=== PATIENT | male | born 1960 | race Caucasian/White ===

== ENCOUNTER 2019-10-17 18:42 | Inpatient (IN) | payer OTHER ==
--- NOTE | 2019-10-17 18:59 | PDOC ---
Rapid Medical Evaluation Time Seen by Provider: 10/17/19 18:58 Medical Evaluation: 10/17/19 18:59 I have performed a brief in-person evaluation of this patient. The patient presents with a chief complaint of: short of breath, ascites Pertinent physical exam findings:stable and in NAD, non-focal I have ordered the following:labs, ekg The patient will proceed to the ED for further evaluation.
[2019-10-17 19:43] LABS: BASO % 1.3 % (0-2.0); EOS % 3.3 % (0-4.5); HEMATOCRIT 34.1 % (35.4-49); HEMOGLOBIN 11.1 GM/dL (11.7-16.9); LYMPH % 19.1 % (8-40); MCH 33.2 pg (25.7-33.7); MCHC 32.7 g/dl (32.0-35.9); MEAN CELL VOLUME 101.7 fl (80-96); MEAN PLT VOLUME 8.9 fl (7.5-11.1); NEUT % 65.3 % (42.8-82.8); PLATELET COUNT 63 K/MM3 (134-434); RBC 3.35 M/mm3 (4.00-5.60); RDW 21.8 % (11.9-15.9); WHITE BLOOD COUNT 4.7 K/mm3 (4.0-10.0)
[2019-10-17 20:00] LABS: INR 1.27 (0.83-1.09)
[2019-10-17 20:03] LABS: ACTIVATED PTT 31.3 SECONDS (25.2-36.5)
[2019-10-17 20:15] LABS: ALBUMIN 2.5 g/dl (3.4-5.0); BLOOD UREA NITROGEN 6.7 mg/dL (7-18); CREATININE 1.1 mg/dL (0.55-1.3); POTASSIUM 3.3 mmol/L (3.5-5.1); TOT PROT 7.4 g/dl (6.4-8.2)
--- NOTE | 2019-10-17 20:20 | PDOC ---
Documentation entered by Lorena Franz SCRIBE, acting as scribe for Elham Lieberman MD. Elham Lieberman MD: This documentation has been prepared by the Osei mcmillan Brenda, SCRIBE, under my direction and personally reviewed by me in its entirety. I confirm that the documentation accurately reflects all work, treatment, procedures, and medical decision making performed by me. Attending Attestation - Resident Resident Name: RasheedMargot - ED Attending Attestation I have performed the following: I have examined & evaluated the patient, The case was reviewed & discussed with the resident, I agree w/resident's findings & plan, Exceptions are as noted - HPI HPI: 10/17/19 20:14 59-year-old male brought in by sister for concern of for his health HPI he is often non-domiciled and has a longstanding history of alcoholism. He shows up at his sister's home periodically and today she was concerned for his health. He had lower extremity edema. Apparently he was admitted at [facility] 3 weeks ago but the sister was not aware of what happened during that admission - Physicial Exam PE: 10/17/19 20: 59-year-old male presents in no acute distress Head no apparent head trauma, no scalp plaques and no hematomas Neck supple Lungs there is some fine bibasilar crackles CVS irregular rhythm Abdomen positive ascites, positive fluid wave, nontender Skin warm and dry Extremities lower extremity pitting edema Neuro alert conversant moving all extremities - Medical Decision Making 10/17/19 20:19 Patient does see the county tax assessor Dr. Monzon PCP is Dr. Dino Benavidez 10/17/19 20:19 Plan review CBC, chemistries, lipase, ammonia, EKG, chest x-ray We will consult Dr. Monzon 10/18/19 01:30 59-year-old male longstanding history of alcoholism and liver cirrhosis with a history of ascites Patient is not febrile, no active nausea or vomiting Review of his labs shows glucose of about 380, hypokalemia and hypomagnesium Plan : we will supplement his magnesium and potassium Patient will be admitted with GI consult with Dr. Monzon
[2019-10-17 20:51] LABS: PH,URINE 7.5 (5.0-8.0); URINE APPEARANCE CLEAR; URINE BILIRUBIN NEGATIVE (NEGATIVE); URINE COLOR YELLOW; URINE GLUCOSE (UA) 3+ (NEGATIVE); URINE KETONE TRACE (NEGATIVE); URINE LEUK ESTERASE NEGATIVE (NEGATIVE); URINE NITRITE NEGATIVE (NEGATIVE); URINE PROTEIN NEGATIVE (NEGATIVE)
--- NOTE | 2019-10-17 20:52 | PDOC ---
History of Present Illness - General Chief Complaint: Edema Stated Complaint: LIVER Time Seen by Provider: 10/17/19 18:58 - History of Present Illness Initial Comments: 10/17/19 20:44 HPI: 59 y/o M non-domiciled non medcompliant poor historian with hx of cirrhosis 2/2 alcohol abuse, HTN, DM, PUD presenting with 3 weeks of abdominal pain, ascites that has been worsening over the past 2 days. The sister at the bedside states he was visiting 3 weeks ago and then left to go to the [facility] and she hasnt been able to find him until 2 days ago. Prior to "the [facility] living" patient was reportedly admitted to [facility] where he had a paracentesis but the family is unclear what else was performed and what diagnoses were made. He denies n/v. He reports pain is usually RUQ and epigastric and nonradiating but he currently does not have pain. He denies hematemesis or BPR. He denies falls, syncope, fevers. He does report pain on urination and a chronic cough. PMHx: as noted above ROS: as noted SHx: last drink reported 3 days ago Allergies: NKDA PCP: Dr Jeff Sun GI: Dr Monzon ROS: GENERAL/CONSTITUTIONAL: No fever or chills. No weakness. HEAD, EYES, EARS, NOSE AND THROAT: No change in vision. No ear pain or discharge. No sore throat. CARDIOVASCULAR: No chest pain or shortness of breath RESPIRATORY: +cough; no wheezing, or hemoptysis. GASTROINTESTINAL: No nausea, vomiting, diarrhea or constipation. GENITOURINARY: +dysuria; no frequency, or change in urination. MUSCULOSKELETAL: No joint or muscle swelling or pain. No neck or back pain. SKIN: No rash NEUROLOGIC: No headache, vertigo, loss of consciousness, or change in strength/ sensation. ENDOCRINE: No increased thirst. No abnormal weight change HEMATOLOGIC/LYMPHATIC: No anemia, easy bleeding, or history of blood clots. ALLERGIC/IMMUNOLOGIC: No hives or skin allergy. PE: GENERAL: Awake, alert, and fully oriented, no acute distress HEAD: No signs of trauma, normocephalic, atraumatic EYES: EOMI, scleral icterus, conjunctiva clear ENT: Auricles normal inspection, hearing grossly normal, nares patent, oropharynx clear without exudates, sublingual jaundice. Moist mucosa NECK: Normal ROM, no lymphadenopathy LUNGS: No increased work of breathing, symmetrical chest rise, BL lower lung base crackles R>L HEART: tachycardic and regular rhythm, normal S1 and S2, no murmurs, peripheral pulses 2+ and equal bilaterally. BL LE edema ABDOMEN: Soft, protuberant abdomen with ascites and +fluid wave, minimal ttp in RUQ, normoactive bowel sounds. No guarding, no rebound. No masses. No CVAT EXTREMITIES: Normal inspection, Normal range of motion, no edema. No clubbing or cyanosis. NEUROLOGICAL: Cranial nerves II through XII grossly intact. negative asterixis, negative pronator drift, normal FTN, normal gait SKIN: Warm, Dry, normal turgor, no rashes or lesions noted Past History - Past Medical History Allergies/Adverse Reactions: Allergies Allergy/AdvReac Type Severity Reaction Status Date / Time aspirin Allergy Verified 10/17/19 19:02 COPD: No Diabetes: Yes GI Disorders: Yes - Psycho Social/Smoking Cessation Hx Smoking History: Never smoked *Physical Exam - Vital Signs Last Vital Signs Temp Pulse Resp BP Pulse Ox 98.5 F 109 H 18 131/75 98 10/17/19 18:56 10/17/19 18:56 10/17/19 18:56 10/17/19 18:56 10/17/19 18:56 ED Treatment Course - LABORATORY CBC & Chemistry Diagram: 10/17/19 19:31 10/17/19 19:31 - ADDITIONAL ORDERS Additional order review: Laboratory Results 10/17/19 10/17/19 10/17/19 19:31 19:31 19:31 WBC 4.7 RBC 3.35 L Hgb 11.1 L Hct 34.1 L MCV 101.7 H MCH 33.2 MCHC 32.7 RDW 21.8 H Plt Count 63 L MPV 8.9 Absolute Neuts (auto) 3.0 Neutrophils % 65.3 Lymphocytes % 19.1 Monocytes % 11.0 H Eosinophils % 3.3 Basophils % 1.3 Nucleated RBC % 0 PT with INR INR PTT (Actin FS) Sodium 132 L Potassium 3.3 L Chloride 95 L Carbon Dioxide 30 Anion Gap 8 BUN 6.7 L Creatinine 1.1 Est GFR (CKD-EPI)AfAm 83.53 Est GFR (CKD-EPI)NonAf 72.07 Random Glucose 382 H Calcium 9.0 Total Bilirubin 3.0 H AST 69 H ALT 35 Alkaline Phosphatase 124 H Creatine Kinase 258 Troponin I 0.09 H Total Protein 7.4 Albumin 2.5 L 10/17/19 19:31 WBC RBC Hgb Hct MCV MCH MCHC RDW Plt Count MPV Absolute Neuts (auto) Neutrophils % Lymphocytes % Monocytes % Eosinophils % Basophils % Nucleated RBC % PT with INR 15.00 H INR 1.27 H PTT (Actin FS) 31.3 Sodium Potassium Chloride Carbon Dioxide Anion Gap BUN Creatinine Est GFR (CKD-EPI)AfAm Est GFR (CKD-EPI)NonAf Random Glucose Calcium Total Bilirubin AST ALT Alkaline Phosphatase Creatine Kinase Troponin I Total Protein Albumin 10/17/19 19:31 RBC 3.35 L MCV 101.7 H MCHC 32.7 RDW 21.8 H MPV 8.9 Neutrophils % 65.3 Lymphocytes % 19.1 Monocytes % 11.0 H Eosinophils % 3.3 Basophils % 1.3 - RADIOLOGY Radiology Studies Ordered: Category Date Time Status CXRPORT [CHEST X-RAY PORTABLE*] [RAD] Stat Radiology 10/17/19 20:10 Ordered Medical Decision Making - Medical Decision Making 10/17/19 21:25 59 y/o M non-domiciled non medcompliant poor historian with hx of cirrhosis 2/2 alcohol abuse, HTN, DM, PUD presenting with 3 weeks of abdominal pain, ascites that has been worsening over the past 2 days. VSS, AF. PE notable for jaundice, ascites, RUQ ttp, BL Le edema, RLL crackles -cbc, cmp, coags, ammonia, ua, ekg, trops, cxr 10/17/19 21:51 Glucose 382 ammonia 49 trop 0.09 ekg with sinus tach and pvcs cxr: no effusion or infiltrates appreciated after review with ED attending Contacted GI, Dr Staley, but he does not know patient or records and was not able to provide additional info Will contact admitting team 10/18/19 00:14 admitted to [facility] will trend trop and decide tele vs med/surg 10/18/19 01:24 trop stable will admit to med surg Discharge - Discharge Information Problems reviewed: Yes Clinical Impression/Diagnosis: Hyperglycemia, Abnormal blood electrolyte level Ascites Qualifiers: Ascites type: due to alcoholic cirrhosis Qualified Code(s): K70.31 - Alcoholic cirrhosis of liver with ascites - Admission Yes - Follow up/Referral Referrals: Jeff Sun [Primary Care Provider] - - Patient Discharge Instructions - Post Discharge Activity
[2019-10-17 21:16] LABS: MAGNESIUM 1.4 mg/dL (1.8-2.4); PHOSPHOROUS 2.1 mg/dL (2.5-4.9)
[2019-10-17 21:43] LABS: ANISOCYTOSIS 2+; MACROCYTOSIS 1+; PLATELET ESTIMATE DECREASED
[2019-10-17] MEDS ORDERED: MAGNESIUM SULF 50% (8.12 MEQ/2 ML-1 GM VIAL) IVPB ONE (23:35)
[2019-10-17] MEDS ORDERED: POTASSIUM CHLORIDE TABS 20 MEQ TABLET.ER (FP) PO ONE ×2 (23:36→23:46)
[2019-10-17] MEDS ORDERED: MAGNESIUM 1GM/D5W - 2 GM/200 ML IVPB IVPB ONE (23:46)
--- NOTE | 2019-10-17 23:47 | HP ---
Admitting History and Physical - Primary Care Physician PCP: Jeff Sun - Admission Chief Complaint: Abdominal Pain, Abdominal Distention, Bilateral Lower Extremity Edema History of Present Illness: This is a 59 y/o man wiith a PMHx of non-domiciled, non-medication compliant, poor historian, Cirrhosis, Alcohol Abuse, HTN, DM, PUD. Who presents to the ED with 3 weeks of abdominal pain, ascites that has been worsening over the past 2 days. Patient is Bengali speaking, and hearing impaired unable to use [employer]. Per ED records: Patient reports pain is usually RUQ and epigastric and nonradiating but he currently does not have pain. Patient also reports pain on urination and a chronic cough. The sister at the bedside states he was visiting 3 weeks ago and then left to go to the streets and she hasn't been able to find him until 2 days ago. Prior to "the street living" patient was reportedly admitted to [facility], where he had a paracentesis but the family is unclear what else was performed and what diagnoses were made. Patient denies n/v. Patient denies hematemesis or BPR. Patient denies fever, falls, syncope. History Source: Patient, Family Member Limitations to Obtaining History: Language Barrier, Physical Impairment ( Hearing Impaired), Poor Historian - Past Medical History Cardiovascular: Yes: HTN Gastrointestinal: Yes: Peptic Ulcer Disease Hepatobiliary: Yes: Cirrhosis Endocrine: Yes: Diabetes Mellitus - Smoking History Smoking history: Never smoked - Alcohol/Substance Use Hx Alcohol Use: Yes (Alcohol Abuse- last drink 3 days ago) - Social History Usual Living Arrangement: Yes: Other (homeless) ADL: Independent History of Recent Travel: No Home Medications - Allergies Allergies/Adverse Reactions: Allergies Allergy/AdvReac Type Severity Reaction Status Date / Time aspirin Allergy Verified 10/17/19 19:02 Family Medical History Family History: Unable to Obtain Review of Systems - Review of Systems Constitutional: reports: No Symptoms Eyes: reports: No Symptoms HENT: reports: No Symptoms Neck: reports: No Symptoms Cardiovascular: reports: No Symptoms Respiratory: reports: Cough Gastrointestinal: reports: Abdominal Pain, Bloating Genitourinary: reports: Burning, Dysuria Breasts: reports: No Symptoms Reported Musculoskeletal: reports: No Symptoms Integumentary: reports: No Symptoms Neurological: reports: No Symptoms Endocrine: reports: No Symptoms Hematology/Lymphatic: reports: No Symptoms Psychiatric: reports: No Symptoms Pain Intensity: 6 Physical Examination Vital Signs: Vital Signs Temperature 98.5 F 10/17/19 18:56 Pulse Rate 109 H 10/17/19 18:56 Respiratory Rate 18 10/17/19 18:56 Blood Pressure 131/75 10/17/19 18:56 O2 Sat by Pulse Oximetry (%) 98 10/17/19 18:56 Constitutional: Yes: No Distress, Calm Eyes: Yes: Sclera Icterus HENT: Yes: WNL, Atraumatic, Normocephalic Neck: Yes: WNL, Supple, Trachea Midline Cardiovascular: Yes: Tachycardia, S1, S2 Respiratory: Yes: Diminished, SOB. No: SOB on Exertion Gastrointestinal: Yes: Ascites, Distention, Hepatomegaly, Hypoactive Bowel Sounds, Splenomegaly. No: Hematemesis, Tenderness, Tenderness, Epigastrium, Vomiting Renal/: Yes: WNL Breast(s): Yes: WNL Musculoskeletal: Yes: WNL Extremities: Yes: WNL Edema: Yes Peripheral Pulses WNL: Yes Neurological: Yes: Alert, Cran Nerves II-XII Intact ...Motor Strength: WNL Psychiatric: Yes: WNL, Alert, Oriented Labs: CBC, BMP 10/17/19 19:31 10/17/19 19:31 Imaging - Results Chest X-ray: Image Reviewed Problem List - Problems (1) Cirrhosis of liver with ascites Assessment/Plan: Chronic Cirrhosis Alcohol Abuse Appreciate GI consult Appreciate IR consult- paracentesis Monitor CBC, BMP Monitor vitals Avoid Hepatotoxic meds Will need to obtain records from [facility] Code(s): K74.60 - UNSPECIFIED CIRRHOSIS OF LIVER; R18.8 - OTHER ASCITES (2) Abnormal blood electrolyte level Assessment/Plan: Likely secondary to chronic Alcohol Abuse, Chronic Cirrhosis Mg and K repleted in ED Monitor BMP Replete lytes as indicated Code(s): E87.8 - OTH DISORDERS OF ELECTROLYTE AND FLUID BALANCE, NEC (3) Serum ammonia increased Assessment/Plan: Likely secondary to Cirrhosis Lactulose ordered Repeat Ammonia level in am Neuro checks Monitor vitals Code(s): E72.20 - DISORDER OF UREA CYCLE METABOLISM, UNSPECIFIED (4) Abdominal pain Assessment/Plan: See above Abdominal US Code(s): R10.9 - UNSPECIFIED ABDOMINAL PAIN (5) Uncontrolled diabetes mellitus Assessment/Plan: Likely due to non-compliance BGMs ISS Monitor BMP Monitor renal function Code(s): E11.65 - TYPE 2 DIABETES MELLITUS WITH HYPERGLYCEMIA (6) Alcohol dependence Assessment/Plan: Alcohol Abstinence Appreciate Detox consult CIWAr 3 Monitor for DTs UDT with ETOH- pending Ativan prn Code(s): F10.20 - ALCOHOL DEPENDENCE, UNCOMPLICATED (7) HTN (hypertension) Assessment/Plan: stable Monitor BP Continue home meds Monitor renal function Code(s): I10 - ESSENTIAL (PRIMARY) HYPERTENSION (8) PUD (peptic ulcer disease) Assessment/Plan: Will continue to monitor and treat with interventions accordingly Pepcid Code(s): K27.9 - PEPTIC ULC, SITE UNSP, UNSP AC OR CHR, W/O HEMOR OR PERF Assessment/Plan This is a 59 y/o man with a PMHx of Alcohol Abuse, HTN, DM, PUD. Admitted for Ascites, Abdominal Pain, Uncontrolled Diabetes Mellitus, Electrolyte Imbalance, Elevated Troponin for further evaluation of their emergent condition. Plan: See Problem List FEN Fluid Restriction Replete lytes prn NPO DVT ppx OOB SCDs Hold AC secondary to Thrombocytopenia Code Status: Full Code Dispo: Requires Inpatient Care Visit type - Emergency Visit Emergency Visit: Yes ED Registration Date: 10/17/19 Care time: The patient presented to the Emergency Department on the above date and was hospitalized for further evaluation of their emergent condition. - New Patient This patient is new to me today: Yes Date on this admission: 10/17/19 - Critical Care Critical Care patient: No
[2019-10-18] MEDS ORDERED: LACTULOSE 20 GM/30 ML UDC (FOR ORAL USE ONLY) PO ONE (00:07)
[2019-10-18] MEDS ORDERED: LACTULOSE 20 GM/30 ML UDC (FOR ORAL USE ONLY) ONE ×2 (00:17→23:44)
[2019-10-18 06:26] LABS: BASO % 0.9 % (0-2.0); EOS % 4.4 % (0-4.5); HEMATOCRIT 29.9 % (35.4-49); HEMOGLOBIN 10.1 GM/dL (11.7-16.9); LYMPH % 24.6 % (8-40); MCH 34.1 pg (25.7-33.7); MCHC 33.8 g/dl (32.0-35.9); MEAN CELL VOLUME 100.9 fl (80-96); MEAN PLT VOLUME 9.2 fl (7.5-11.1); MONO % 10.8 % (3.8-10.2); NEUT % 59.3 % (42.8-82.8); PLATELET COUNT 39 K/MM3 (134-434); RBC 2.96 M/mm3 (4.00-5.60); RDW 21.6 % (11.9-15.9); WHITE BLOOD COUNT 4.2 K/mm3 (4.0-10.0)
[2019-10-18 06:43] LABS: ALBUMIN 2.2 g/dl (3.4-5.0); BILIRUBIN,TOTAL 2.5 mg/dL (0.2-1); BLOOD UREA NITROGEN 5.2 mg/dL (7-18); CALCIUM 8.5 mg/dL (8.5-10.1); CREATININE 0.8 mg/dL (0.55-1.3); MAGNESIUM 1.5 mg/dL (1.8-2.4); PHOSPHOROUS 1.9 mg/dL (2.5-4.9); POTASSIUM 3.7 mmol/L (3.5-5.1); TOT PROT 6.8 g/dl (6.4-8.2)
[2019-10-18] MEDS ORDERED: MORPHINE SULFATE 2 MG/ML VIAL ONE ×2 (07:00→15:59)
[2019-10-18] MEDS: MORPHINE SULFATE 2 MG/ML VIAL IVPUSH ONE ×2 (07:04→07:06)
[2019-10-18 07:09] LABS: COCAINE, UR NEGATIVE ng/ml (CUTOFF=300); METHADONE, UR NEGATIVE ng/ml (CUTOFF=300); OPIATES, URI NEGATIVE ng/ml (CUTOFF=300); PHENCYCLIDINE,URINE NEGATIVE ng/ml (CUTOFF=25); URINE AMPHETAMINES NEGATIVE ng/ml (CUTOFF=500); URINE BARBITURATES NEGATIVE ng/ml (CUTOFF=200); URINE BENZODIAZEPINES NEGATIVE ng/ml (CUTOFF=200)
[2019-10-18] MEDS ORDERED: INSULIN (NOVOLOG) ASPART 100 UNITS/ML 10ML VIAL SQ ONE (07:57)
[2019-10-18] MEDS: FAMOTIDINE 20 MG/50 ML IVPB 20 MG/50 ML MG IVPB SCH ×2 (10:17→23:56)
--- NOTE | 2019-10-18 10:29 | CON.CARD ---
Consult Consult Specialty:: Cardiology Reason for Consultation:: elevated troponin - History of Present Illness Chief Complaint: abd distention History of Present Illness: 59 year old man pmh HTN, DM, etoh abuse cirrhosis, adm with RUQ and epigastric pain, dysuria, chronic cough, ascites. Troponin level was sent and was minimally elevated with normal CK level and not sig trending up on repeat. pt seen and examined in er. pt unable to provide a clear hpi. denies chest pain or sob. states he wants food. - History Source History Provided By: Patient, Medical Record Limitations to Obtaining History: Poor Historian - Past Medical History Cardio/Vascular: Yes: HTN Gastrointestinal: Yes: Peptic Ulcer Disease Hepatobiliary: Yes: Cirrhosis Endocrine: Yes: Diabetes Mellitus - Alcohol/Substance Use Hx Alcohol Use: Yes (Alcohol Abuse- last drink 3 days ago) - Smoking History Smoking history: Never smoked - Social History ADL: Independent History of Recent Travel: No Home Medications - Allergies Allergies/Adverse Reactions: Allergies Allergy/AdvReac Type Severity Reaction Status Date / Time aspirin Allergy Verified 10/17/19 19:02 Family Medical History Family History: Denies Review of Systems - Review of Systems Constitutional: reports: Weakness. denies: No Symptoms, Chills, Diaphoresis, Fever, Lethargy, Loss of Appetite, Malaise, Night Sweats, Unintentional Wgt. Loss, Other Eyes: denies: No Symptoms, Blind Spots, Blurred Vision, Double Vision, Eye Pain , Floaters, Photophobia, Recent Change in Vision, Other HENT: denies: No Symptoms, Difficult Swallowing, Ear Discharge, Ear Pain, Epistaxis, Gingival Bleeding, Hearing Loss, Mouth Swelling, Nasal Congestion, Ocular Prosthesis, Throat Pain, Toothache, Ringing in Ears, Other Neck: denies: No Symptoms, Decreased ROM, Lumps, Pain on Movement, Stiffness, Swollen Glands, Tenderness, Other Cardiovascular: denies: No Symptoms, Chest Pain, Edema, Palpitations, Shortness of Breath, Other Respiratory: reports: Cough. denies: No Symptoms, Exercise Intolerance, Hemoptysis, Orthopnea, PND, Snoring, SOB, SOB on Exertion, Wheezing, Other Gastrointestinal: reports: Abdominal Pain, Bloating. denies: No Symptoms, Constipation, Diarrhea, Dysphagia, Indigestion, Melena, Nausea, Rectal Bleeding , Vomiting, Vomiting Blood, Other Genitourinary: reports: Dysuria. denies: No Symptoms, Burning, Discharge, Flank Pain, Frequency, Hematuria, Incontinence, Lesions, Menses, Pain, Testicular Mass, Testicular Pain, Testicular Swelling, Urgency, Vaginal Bleeding , Other Breasts: denies: No Symptoms Reported, See HPI, Breast Implants, Discharge from Nipple, Lumps, Pain, Skin Changes, Other Musculoskeletal: denies: No Symptoms, Back Pain, Crepitus, Decreased ROM, Extremity Pain, Joint Pain, Joint Swelling, Muscle Pain, Muscle Cramps, Muscle Weakness, Other Integumentary: denies: No Symptoms, Blister, Bruising, Change in Color, Eczema, Erythema, Incision, Lesions, Lump, Pallor, Pruritis, Rash, Wound, Other Neurological: denies: No Symptoms, Change in LOC, Change in Speech, Confusion, Dizziness, Headache, Incoordination, Numbness, Parasthesia, Pre-Existing Deficit , Seizure, Syncope, Tremors, Unsteady Gait, Weakness, Other Endocrine: denies: No Symptoms, Excessive Sweating, Flushing, Increased Hunger, Increased Thirst, Intolerance to Cold, Intolerance to Heat, Unexplained Weight Gain, Unexplained Weight Loss, Other Hematology/Lymphatic: denies: No Symptoms, Easily Bruised, Excessive Bleeding, Swollen Glands, Other Psychiatric: denies: No Symptoms, Altered Sleep Pattern, Anxiety, Depression, Hallucinations, Panic, Paranoia, Suicidal, Other Vital Signs: Vital Signs Temperature 98.2 F 10/18/19 07:40 Pulse Rate 109 H 10/18/19 07:40 Respiratory Rate 20 10/18/19 07:40 Blood Pressure 126/69 10/18/19 07:40 O2 Sat by Pulse Oximetry (%) 98 10/18/19 07:40 Constitutional: Yes: No Distress, Calm Eyes: Yes: Conjunctiva Clear, EOM Intact HENT: Yes: Atraumatic, Normocephalic Neck: Yes: Supple, Trachea Midline Respiratory: Yes: Regular, Diminished. No: Rales, Rhonchi, SOB, Wheezes Gastrointestinal: Yes: Normal Bowel Sounds Cardiovascular: Yes: Regular Rate and Rhythm. No: Bradycardia, Tachycardia, Pulse Irregular, Gallop, Rub, Varicosities JVD: No Carotid Bruit: No PMI: Non-Displaced Heart Sounds: Yes: S1, S2. No: Split S2, S3, S4, Clicks, Gallop, Rub, Bruit Murmur: No: Systolic Murmur, Diastolic Murmur Edema: LLE: Trace, RLE: Trace Peripheral Pulses WNL: Yes Neurological: Yes: Alert Psychiatric: Yes: Alert - Other Data Labs, Other Data: CBC, BMP 10/18/19 05:35 10/18/19 05:35 INR, PTT INR 1.27 (0.83-1.09) H 10/17/19 19:31 Troponin, BNP 10/17/19 10/18/19 19:31 00:28 Troponin I 0.09 H 0.10 H Troponin, BNP 10/17/19 10/18/19 19:31 00:28 Troponin I 0.09 H 0.10 H sinus tach, pvcs, nsst Imaging - Results Chest X-ray: Report Reviewed, Image Reviewed EKG: Report Reviewed, Image Reviewed Other: Report Reviewed, Image Reviewed Assessment/Plan 59 year old man pmh HTN, DM, etoh abuse cirrhosis, adm with RUQ and epigastric pain, dysuria, chronic cough, ascites. Troponin level was sent and was minimally elevated with normal CK level and not sig trending up on repeat. pt unable to provide a clear hpi. denies chest pain or sob. states he wants food. Elevated troponin-incidentally found -minimally elevated with normal CK level and troponin not trending up -not c/w ACS -no symptoms concerning for ACS, no ischemia on ekg -does not require additional inpatient cardiac work up at this time. -does not require telemetry monitoring. Will see as needed.
--- NOTE | 2019-10-18 10:34 | EKG ---
Test Reason : Blood Pressure : / mmHG Vent. Rate : 108 BPM Atrial Rate : 108 BPM P-R Int : 130 ms QRS Dur : 086 ms QT Int : 408 ms P-R-T Axes : 045 005 133 degrees QTc Int : 546 ms SINUS TACHYCARDIA WITH PREMATURE ATRIAL COMPLEXES WITH ABERRANT CONDUCTION NONSPECIFIC T WAVE ABNORMALITY ABNORMAL ECG NO PREVIOUS ECGS AVAILABLE Confirmed by Matty Rivas MD ([id number]) on 10/18/2019 10:34:05 AM Referred By: Confirmed By:Matty Rivas MD
[2019-10-18] MEDS: INSULIN SLIDING SCALE (NOVOLOG) 1 VIAL SQ SCH ×3 (11:04→23:00)
--- NOTE | 2019-10-18 14:16 | PN ---
Progress Note, Physician Chief Complaint: Liver Cirrhosis Ascites Abdominal Pain History of Present Illness: Previous notes and events reviewed awake and alert, confused NAD S/p paracentesis with 5L removed denies complaints of pain - Current Medication List Current Medications: Active Medications Famotidine/Sodium Chloride (Pepcid 20 Mg Premixed Ivpb -) 20 mg in 50 mls @ 100 mls/hr IVPB BID [facility] Last Admin: 10/18/19 10:17 Dose: 100 mls/hr Insulin Aspart (Novolog Vial Sliding Scale -) 1 vial SQ ACHS [facility]; Protocol Last Admin: 10/18/19 11:04 Dose: Not Given - Objective Vital Signs: Vital Signs Temperature 98.2 F 10/18/19 11:49 Pulse Rate 104 H 10/18/19 11:49 Respiratory Rate 20 10/18/19 11:49 Blood Pressure 107/65 10/18/19 11:49 O2 Sat by Pulse Oximetry (%) 100 10/18/19 11:49 Constitutional: Yes: No Distress, Calm, Other (jaundice) Eyes: Yes: EOM Intact HENT: Yes: Atraumatic Cardiovascular: Yes: Regular Rate and Rhythm Respiratory: Yes: Regular, Diminished Gastrointestinal: Yes: Normal Bowel Sounds, Soft Musculoskeletal: Yes: Muscle Weakness Extremities: Yes: WNL Edema: Yes Edema: LLE: 2+ Neurological: Yes: Alert, Confusion Psychiatric: Yes: Alert Labs: CBC, BMP 10/18/19 05:35 10/18/19 05:35 INR, PTT INR 1.27 (0.83-1.09) H 10/17/19 19:31 Problem List - Problems (1) Abdominal pain Assessment/Plan: -2/2 Ascites -Abdominal US shows moderate to marked ascites -pain control Code(s): R10.9 - UNSPECIFIED ABDOMINAL PAIN (2) Cirrhosis of liver with ascites Assessment/Plan: -GI on board -Ammonia 63.70 -Lactulose BID -Abdominal US moderate to marked ascites -s/p paracentesis with 5L removed -daily weights -fluid restrictions Code(s): K74.60 - UNSPECIFIED CIRRHOSIS OF LIVER; R18.8 - OTHER ASCITES (3) Hyperglycemia Assessment/Plan: -ISS -HgA1c -Endocrinology consult Code(s): R73.9 - HYPERGLYCEMIA, UNSPECIFIED (4) Alcohol dependence Assessment/Plan: -Dr Stroe -Ativan BID -MVI, Folic Acid, Thiamine -neuro checks -seizure precaution -fall risk precautions Code(s): F10.20 - ALCOHOL DEPENDENCE, UNCOMPLICATED (5) Elevated troponin Assessment/Plan: -Cardiology consult -troponin 0.09, 0.10 Code(s): R79.89 - OTHER SPECIFIED ABNORMAL FINDINGS OF BLOOD CHEMISTRY (6) Serum ammonia increased Assessment/Plan: -Ammonia 63.70 -Lactulose BID Code(s): E72.20 - DISORDER OF UREA CYCLE METABOLISM, UNSPECIFIED (7) Thrombocytopenia Assessment/Plan: -PLT 39 -Hematology consult Code(s): D69.6 - THROMBOCYTOPENIA, UNSPECIFIED Assessment/Plan see problem list dvt ppx
--- NOTE | 2019-10-18 14:28 | CONSULT ---
Consultation: REQUESTING PROVIDER: HEME/ONC Service CONSULT REQUEST: We have been asked to medically evaluate this patient for thrombocytopenia. HISTORY OF PRESENT ILLNESS: Pt was uncooperative with giving history stating in Vietnamese that he did not want to speak with me. History taken from records. 59 y/o man urbano a PMHx of non-domiciled, non-medication compliant, poor historian, Cirrhosis, Alcohol Abuse, HTN, DM, PUD who presented to ED with complaint of abd pain. Heme/Onc was called to evaluate for thrombocytopenia. REVIEW OF SYSTEMS: unable to assess PHYSICAL EXAMINATION Vital Signs - 24 hr 10/17/19 10/18/19 10/18/19 18:56 06:48 07:40 Temperature 98.5 F 98.2 F Pulse Rate 109 H Pulse Rate [ 96 H 109 H Apical] Respiratory 18 20 20 Rate Blood Pressure 131/75 Blood Pressure 139/76 126/69 [Right Arm] O2 Sat by Pulse 98 96 98 Oximetry (%) 10/18/19 11:49 Temperature 98.2 F Pulse Rate Pulse Rate [ 104 H Apical] Respiratory 20 Rate Blood Pressure Blood Pressure 107/65 [Right Arm] O2 Sat by Pulse 100 Oximetry (%) pt refused exam Laboratory Results - last 24 hr 10/17/19 10/17/19 10/17/19 06:07 19:31 19:31 WBC RBC Hgb Hct MCV MCH MCHC RDW Plt Count MPV Absolute Neuts (auto) Neutrophils % Lymphocytes % Monocytes % Eosinophils % Basophils % Nucleated RBC % Hypochromia Platelet Estimate Platelet Comment Polychromasia Anisocytosis Macrocytosis PT with INR 15.00 H INR 1.27 H PTT (Actin FS) 31.3 Sodium 132 L Potassium 3.3 L Chloride 95 L Carbon Dioxide 30 Anion Gap 8 BUN 6.7 L Creatinine 1.1 Est GFR (CKD-EPI)AfAm 83.53 Est GFR (CKD-EPI)NonAf 72.07 POC Glucometer Random Glucose 382 H Calcium 9.0 Phosphorus Magnesium Total Bilirubin 3.0 H AST 69 H ALT 35 Alkaline Phosphatase 124 H Ammonia Creatine Kinase Creatine Kinase Index CK-MB (CK-2) Troponin I Total Protein 7.4 Albumin 2.5 L Lipase Urine Color Urine Appearance Urine pH Ur Specific [place] Urine Protein Urine Glucose (UA) Urine Ketones Urine Blood Urine Nitrite Urine Bilirubin Urine Urobilinogen Ur Leukocyte Esterase Opiates Screen Negative Methadone Screen Negative Barbiturate Screen Negative Phencyclidine Screen Negative Ur Amphetamines Screen Negative MDMA (Ecstasy) Screen Negative Benzodiazepines Screen Negative Cocaine Screen Negative U Marijuana (THC) Screen Negative Blood Type Antibody Screen 10/17/19 10/17/19 10/17/19 19:31 19:31 20:30 WBC 4.7 RBC 3.35 L Hgb 11.1 L Hct 34.1 L MCV 101.7 H MCH 33.2 MCHC 32.7 RDW 21.8 H Plt Count 63 L MPV 8.9 Absolute Neuts (auto) 3.0 Neutrophils % 65.3 Lymphocytes % 19.1 Monocytes % 11.0 H Eosinophils % 3.3 Basophils % 1.3 Nucleated RBC % 0 Hypochromia 1+ Platelet Estimate Decreased Platelet Comment No clumping noted Polychromasia 2+ Anisocytosis 2+ Macrocytosis 1+ PT with INR INR PTT (Actin FS) Sodium Potassium Chloride Carbon Dioxide Anion Gap BUN Creatinine Est GFR (CKD-EPI)AfAm Est GFR (CKD-EPI)NonAf POC Glucometer Random Glucose Calcium Phosphorus Magnesium Total Bilirubin AST ALT Alkaline Phosphatase Ammonia Creatine Kinase 258 Creatine Kinase Index 0.6 CK-MB (CK-2) 1.7 Troponin I 0.09 H Total Protein Albumin Lipase Urine Color Yellow Urine Appearance Clear Urine pH 7.5 Ur Specific [place] 1.040 H Urine Protein Negative Urine Glucose (UA) 3+ H Urine Ketones Trace H Urine Blood Negative Urine Nitrite Negative Urine Bilirubin Negative Urine Urobilinogen 1.0 Ur Leukocyte Esterase Negative Opiates Screen Methadone Screen Barbiturate Screen Phencyclidine Screen Ur Amphetamines Screen MDMA (Ecstasy) Screen Benzodiazepines Screen Cocaine Screen U Marijuana (THC) Screen Blood Type Antibody Screen 10/17/19 10/17/19 10/18/19 20:30 20:30 00:28 WBC RBC Hgb Hct MCV MCH MCHC RDW Plt Count MPV Absolute Neuts (auto) Neutrophils % Lymphocytes % Monocytes % Eosinophils % Basophils % Nucleated RBC % Hypochromia Platelet Estimate Platelet Comment Polychromasia Anisocytosis Macrocytosis PT with INR INR PTT (Actin FS) Sodium Potassium Chloride Carbon Dioxide Anion Gap BUN Creatinine Est GFR (CKD-EPI)AfAm Est GFR (CKD-EPI)NonAf POC Glucometer Random Glucose Calcium Phosphorus 2.1 L Magnesium 1.4 L Total Bilirubin AST ALT Alkaline Phosphatase Ammonia 49.30 H Creatine Kinase Creatine Kinase Index CK-MB (CK-2) Troponin I 0.10 H Total Protein Albumin Lipase 131 Urine Color Urine Appearance Urine pH Ur Specific [place] Urine Protein Urine Glucose (UA) Urine Ketones Urine Blood Urine Nitrite Urine Bilirubin Urine Urobilinogen Ur Leukocyte Esterase Opiates Screen Methadone Screen Barbiturate Screen Phencyclidine Screen Ur Amphetamines Screen MDMA (Ecstasy) Screen Benzodiazepines Screen Cocaine Screen U Marijuana (THC) Screen Blood Type Antibody Screen 10/18/19 10/18/19 10/18/19 05:35 05:35 05:35 WBC 4.2 RBC 2.96 L Hgb 10.1 L Hct 29.9 L MCV 100.9 H MCH 34.1 H MCHC 33.8 RDW 21.6 H Plt Count 39 L D MPV 9.2 Absolute Neuts (auto) 2.5 Neutrophils % 59.3 Lymphocytes % 24.6 D Monocytes % 10.8 H Eosinophils % 4.4 Basophils % 0.9 Nucleated RBC % 0 Hypochromia Platelet Estimate Platelet Comment Polychromasia Anisocytosis Macrocytosis PT with INR INR PTT (Actin FS) Sodium 135 L Potassium 3.7 Chloride 99 Carbon Dioxide 29 Anion Gap 8 BUN 5.2 L Creatinine 0.8 Est GFR (CKD-EPI)AfAm 111.74 Est GFR (CKD-EPI)NonAf 96.41 POC Glucometer Random Glucose 330 H Calcium 8.5 Phosphorus 1.9 L Magnesium 1.5 L Total Bilirubin 2.5 H AST 66 H ALT 31 Alkaline Phosphatase 115 Ammonia 63.70 H Creatine Kinase Creatine Kinase Index CK-MB (CK-2) Troponin I Total Protein 6.8 Albumin 2.2 L Lipase Urine Color Urine Appearance Urine pH Ur Specific [place] Urine Protein Urine Glucose (UA) Urine Ketones Urine Blood Urine Nitrite Urine Bilirubin Urine Urobilinogen Ur Leukocyte Esterase Opiates Screen Methadone Screen Barbiturate Screen Phencyclidine Screen Ur Amphetamines Screen MDMA (Ecstasy) Screen Benzodiazepines Screen Cocaine Screen U Marijuana (THC) Screen Blood Type Antibody Screen 10/18/19 10/18/19 10/18/19 10:18 11:03 11:50 WBC RBC Hgb Hct MCV MCH MCHC RDW Plt Count MPV Absolute Neuts (auto) Neutrophils % Lymphocytes % Monocytes % Eosinophils % Basophils % Nucleated RBC % Hypochromia Platelet Estimate Platelet Comment Polychromasia Anisocytosis Macrocytosis PT with INR INR PTT (Actin FS) Sodium Potassium Chloride Carbon Dioxide Anion Gap BUN Creatinine Est GFR (CKD-EPI)AfAm Est GFR (CKD-EPI)NonAf POC Glucometer 134 Random Glucose Calcium Phosphorus Magnesium Total Bilirubin AST ALT Alkaline Phosphatase Ammonia Creatine Kinase Creatine Kinase Index CK-MB (CK-2) Troponin I Total Protein Albumin Lipase Urine Color Urine Appearance Urine pH Ur Specific [place] Urine Protein Urine Glucose (UA) Urine Ketones Urine Blood Urine Nitrite Urine Bilirubin Urine Urobilinogen Ur Leukocyte Esterase Opiates Screen Methadone Screen Barbiturate Screen Phencyclidine Screen Ur Amphetamines Screen MDMA (Ecstasy) Screen Benzodiazepines Screen Cocaine Screen U Marijuana (THC) Screen Blood Type O POSITIVE O POSITIVE Antibody Screen Negative Active Medications Generic Name Dose Route Start Last Admin Trade Name Freq PRN Reason Stop Dose Admin Famotidine/Sodium Chloride 20 mg in 50 mls @ 100 mls/hr 10/18/19 10:00 10:17 Pepcid 20 Mg Premixed Ivpb - IVPB 100 mls/hr BID MITESH Administration Insulin Aspart 1 vial 10/18/19 11:00 10/18/19 11:04 Novolog Vial Sliding Scale - SQ Not Given ACHS [facility] Protocol ASSESSMENT/PLAN: 59 y/o man urb[place] alcazar PMHx of non-domiciled, non-medication compliant, poor historian, Cirrhosis, Alcohol Abuse, HTN, DM, PUD who presented to ED with complaint of abd pain. Heme/Onc was called to evaluate for thrombocytopenia. Thrombocytopenia -unable to perform a thorough assessment as pt is uncooperative. -pt is a known EtOH abuser with cirrhosis. This is a likely contributor. -Abd U/S reveal hetergeneous liver, splenomegally, and ascites, which is consistent with pt's presentation -transaminitis, elevated ammonia, bilirubin, INR, decreased albumin all consistent with hepatic dysfunction -no lesions noted on U/S, though could consider AFP and hepititis panel, as well as B12, Folate, TSH and Fe studies Dispo: We will continue to follow the patient. Thank you for this consultative opportunity. Visit type - Emergency Visit Emergency Visit: Yes ED Registration Date: 10/18/19 Care time: The patient presented to the Emergency Department on the above date and was hospitalized for further evaluation of their emergent condition. - New Patient This patient is new to me today: Yes Date on this admission: 10/19/19 - Critical Care Critical Care patient: No ATTENDING PHYSICIAN STATEMENT I saw and evaluated the patient. I reviewed the resident's note and discussed the case with the resident. I agree with the resident's findings and plan as documented. SUBJECTIVE: OBJECTIVE: ASSESSMENT AND PLAN:
[2019-10-18] MEDS ORDERED: morphine CARPU-JECT 2 MG/1 ML DISP.SYRIN IVPUSH ONE (15:53)
[2019-10-18] MEDS ORDERED: MORPHINE SULFATE 2 MG/ML VIAL IVPUSH PRN (16:44)
[2019-10-18 17:22] LABS: PERITONEAL RBC 841 /mm3
--- NOTE | 2019-10-18 17:53 | CON.GI ---
Consult Consult Specialty:: GI - History of Present Illness History of Present Illness: 59 y/o male with PMH of cirrhosis seondary to alcohol abuse was asked to be seen because of worsening ascitis. He started drinking ofr the past few months, He underwent diagnostic and therapeutic paracentesis. - Past Medical History Cardio/Vascular: Yes: HTN Gastrointestinal: Yes: Peptic Ulcer Disease Hepatobiliary: Yes: Cirrhosis Endocrine: Yes: Diabetes Mellitus - Alcohol/Substance Use Hx Alcohol Use: Yes (Alcohol Abuse- last drink 3 days ago) - Smoking History Smoking history: Never smoked - Social History ADL: Independent History of Recent Travel: No Home Medications - Allergies Allergies/Adverse Reactions: Allergies Allergy/AdvReac Type Severity Reaction Status Date / Time aspirin Allergy Verified 10/17/19 19:02 Physical Exam-GI Vital Signs: Vital Signs Temperature 98.2 F 10/18/19 11:49 Pulse Rate 104 H 10/18/19 11:49 Respiratory Rate 20 10/18/19 11:49 Blood Pressure 107/65 10/18/19 11:49 O2 Sat by Pulse Oximetry (%) 100 10/18/19 11:49 Constitutional: Yes: Well Nourished Eyes: Yes: Conjunctiva Clear HENT: Yes: Atraumatic Neck: Yes: Supple Cardiovascular: Yes: Regular Rate and Rhythm Respiratory: Yes: CTA Bilaterally Gastrointestinal Inspection: Yes: Ascites ...Palpate: Yes: Soft. No: Firm/Rigid, Guarding, Hepatomegaly, Mass, Pulsatile Mass, Splenomegaly, Tenderness ...Percussion: Yes: Tympanitic Labs: CBC, BMP 10/18/19 05:35 10/18/19 05:35 INR, PTT INR 1.27 (0.83-1.09) H 10/17/19 19:31 Hepatic Panel Total Bilirubin 2.5 mg/dL (0.2-1) H 10/18/19 05:35 AST 66 U/L (15-37) H 10/18/19 05:35 ALT 31 U/L (13-61) 10/18/19 05:35 Alkaline Phosphatase 115 U/L (45-117) 10/18/19 05:35 Albumin 2.2 g/dl (3.4-5.0) L 10/18/19 05:35 Problem List - Problems (1) Alcoholic cirrhosis of liver with ascites Assessment/Plan: 1) aldactone 50mg daily 2) check vial hepatitis profile 3) daily weights 4) detox protocol 5) thiamine Code(s): K70.31 - ALCOHOLIC CIRRHOSIS OF LIVER WITH ASCITES
[2019-10-18] MEDS: THIAMINE HCL 100 MG TABLET (FP) PO SCH (18:10)
[2019-10-18] MEDS ORDERED: THIAMINE HCL 100 MG TABLET (FP) ONE (18:10)
[2019-10-18 20:26] LABS: PERITONEAL FLUID LYMPHOCYTE 17 %; PERITONEAL FLUID MESOTHELIAL 14 %; PERITONEAL FLUID MONOCYTE 3 %; PERITONEAL FLUID NEUTROPHIL 5 %
[2019-10-18 20:27] LABS: PERITONEAL FLUID MACROPHAGE 61 %
[2019-10-18] MEDS ORDERED: LORazepam 0.5 MG TABLET ONE (23:44)
[2019-10-18] MEDS ORDERED: FAMOTIDINE 20 MG/50 ML IVPB 20 MG/50 ML MG IVPB ONE (23:45)
[2019-10-18] MEDS: LORazepam 1 MG TABLET PO SCH (23:55)
[2019-10-18] MEDS: LACTULOSE 20 GM/30 ML UDC (FOR ORAL USE ONLY) PO SCH (23:56)
[2019-10-18] MEDS: RIFAXIMIN 550 MG TABLET (UD) PO SCH (23:56)
[2019-10-19] MEDS: INSULIN SLIDING SCALE (NOVOLOG) 1 VIAL SQ SCH ×4 (09:18→22:38)
[2019-10-19] MEDS ORDERED: LORazepam 0.5 MG TABLET ONE (10:15)
[2019-10-19] MEDS: LORazepam 1 MG TABLET PO SCH ×2 (10:40→22:31)
[2019-10-19] MEDS: SPIRONOLACTONE 25 MG TABLET (FP) PO SCH (10:40)
[2019-10-19] MEDS: LACTULOSE 20 GM/30 ML UDC (FOR ORAL USE ONLY) PO SCH ×2 (10:40→22:31)
[2019-10-19] MEDS: FAMOTIDINE 20 MG/50 ML IVPB 20 MG/50 ML MG IVPB SCH ×2 (10:41→22:31)
[2019-10-19] MEDS: FOLIC ACID 1 MG TABLET (FP) PO SCH (10:41)
[2019-10-19] MEDS: RIFAXIMIN 550 MG TABLET (UD) PO SCH ×2 (10:41→22:31)
[2019-10-19] MEDS: MULTIVITAMINS (DAILY MVI) TABLET (FP) PO SCH (10:41)
[2019-10-19] MEDS: THIAMINE HCL 100 MG TABLET (FP) PO SCH (10:41)
--- NOTE | 2019-10-19 10:48 | PN ---
Progress Note, Physician Chief Complaint: Liver Cirrhosis Ascites Abdominal Pain History of Present Illness: Previous notes and events reviewed awake and alert NAD denies complaints of pain continues to be confused - Current Medication List Current Medications: Active Medications Folic Acid (Folic Acid -) 1 mg PO DAILY [facility] Last Admin: 10/19/19 10:41 Dose: 1 mg Famotidine/Sodium Chloride (Pepcid 20 Mg Premixed Ivpb -) 20 mg in 50 mls @ 100 mls/hr IVPB BID [facility] Last Admin: 10/19/19 10:41 Dose: 100 mls/hr Insulin Aspart (Novolog Vial Sliding Scale -) 1 vial SQ ACHS [facility]; Protocol Last Admin: 10/19/19 09:18 Dose: 6 units Lactulose (Cephulac (Oral Use)) 20 gm PO BID [facility] Last Admin: 10/19/19 10:40 Dose: 20 gm Lorazepam (Ativan -) 1 mg PO BID [facility] Last Admin: 10/19/19 10:40 Dose: 1 mg Morphine Sulfate (Morphine Sulfate) 1 mg IVPUSH Q6H PRN PRN Reason: PAIN LEVEL 6-10 Multivitamins/Minerals/Vitamin C (Tab-A-Vit -) 1 tab PO DAILY [facility] Last Admin: 10/19/19 10:41 Dose: 1 tab Rifaximin (Xifaxan -) 550 mg PO BID [facility] Last Admin: 10/19/19 10:41 Dose: 550 mg Spironolactone (Aldactone -) 50 mg PO DAILY [facility] Last Admin: 10/19/19 10:40 Dose: 50 mg Thiamine HCl (Vitamin B1 -) 100 mg PO DAILY [facility] Last Admin: 10/19/19 10:41 Dose: 100 mg - Objective Vital Signs: Vital Signs Temperature 98.1 F 10/19/19 04:53 Pulse Rate 99 H 10/19/19 04:53 Respiratory Rate 15 10/19/19 05:45 Blood Pressure 139/73 10/19/19 04:53 O2 Sat by Pulse Oximetry (%) 96 10/19/19 05:45 Constitutional: Yes: No Distress, Calm, Other (jaundice) Eyes: Yes: Conjunctiva Clear HENT: Yes: Atraumatic Cardiovascular: Yes: Regular Rate and Rhythm Respiratory: Yes: Regular, CTA Bilaterally Gastrointestinal: Yes: Normal Bowel Sounds, Soft Musculoskeletal: Yes: Muscle Weakness Extremities: Yes: WNL Edema: No Neurological: Yes: Alert, Confusion Psychiatric: Yes: Alert Labs: CBC, BMP 10/18/19 05:35 10/18/19 05:35 INR, PTT INR 1.27 (0.83-1.09) H 10/17/19 19:31 Microbiology 10/18/19 15:00 Ascites Gram Stain - Final 10/17/19 20:30 Urine - Urine Clean Catch Urine Culture - Final NO GROWTH OBTAINED 10/18/19 15:00 Ascites PAMELLA Preparation - Preliminary 10/18/19 15:00 Ascites Fungal Culture - Preliminary 10/18/19 15:00 Ascites AFB Smear Concentration - Preliminary 10/18/19 15:00 Ascites Mycobacterial Culture - Preliminary Problem List - Problems (1) Abdominal pain Assessment/Plan: -2/2 Ascites -Abdominal US shows moderate to marked ascites -pain control Code(s): R10.9 - UNSPECIFIED ABDOMINAL PAIN (2) Cirrhosis of liver with ascites Assessment/Plan: -GI on board -Ammonia 63.70 -Lactulose BID -Abdominal US moderate to marked ascites -s/p paracentesis with 5L removed -daily weights -fluid restrictions -pending result cytology of ascites fluid Code(s): K74.60 - UNSPECIFIED CIRRHOSIS OF LIVER; R18.8 - OTHER ASCITES (3) Hyperglycemia Assessment/Plan: -ISS -HgA1c -Endocrinology consult Code(s): R73.9 - HYPERGLYCEMIA, UNSPECIFIED (4) Alcohol dependence Assessment/Plan: -Dr Espinoza -Ativan BID -MVI, Folic Acid, Thiamine -neuro checks -seizure precaution -fall risk precautions -Psych consult Code(s): F10.20 - ALCOHOL DEPENDENCE, UNCOMPLICATED (5) Elevated troponin Assessment/Plan: -Cardiology consult -troponin 0.09, 0.10 Code(s): R79.89 - OTHER SPECIFIED ABNORMAL FINDINGS OF BLOOD CHEMISTRY (6) Serum ammonia increased Assessment/Plan: -Ammonia 63.70 -Lactulose BID Code(s): E72.20 - DISORDER OF UREA CYCLE METABOLISM, UNSPECIFIED (7) Thrombocytopenia Assessment/Plan: -PLT 39 -Hematology consult Code(s): D69.6 - THROMBOCYTOPENIA, UNSPECIFIED Assessment/Plan see problem list dvt ppx
--- NOTE | 2019-10-19 17:24 | PN ---
Teaching Attending Note Name of Resident: Chris Wilson ATTENDING PHYSICIAN STATEMENT I saw and evaluated the patient. I reviewed the resident's note and discussed the case with the resident. I agree with the resident's findings and plan as documented. SUBJECTIVE: Patient seen and examined Chart reviewed Hard of hearing and history is unobtainable from patient History of alcoholic cirrhosis. Presents with anemia , thrombocytopenia , abnormal LFT's, elevated NH3 level Last Vital Signs Temp Pulse Resp BP Pulse Ox 98.7 F 120 H 20 111/67 96 10/19/19 14:56 10/19/19 14:56 10/19/19 14:56 10/19/19 14:56 10/19/19 12:13 HEENT: [place], EOM Intact Oropharynx: No thrush, No mucositis Neck: Supple Nodes: Without adenopathy Cor: RSR, No murmurs, No gallops Lungs: Clear to P&A Abd: fluid wave , RUQ fullness Ext:No significant edema Skin: No rashes, Integument intact CBC, BMP 10/18/19 05:35 10/18/19 05:35 Current Medications Generic Name Dose Route Start Last Admin Trade Name Freq PRN Reason Stop Dose Admin Folic Acid 1 mg 10/19/19 10:00 10/19/19 10:41 Folic Acid - PO 1 mg DAILY MITESH Administration Famotidine/Sodium Chloride 20 mg in 50 mls @ 100 mls/hr 10/18/19 10:00 10:41 Pepcid 20 Mg Premixed Ivpb - IVPB 100 mls/hr BID MITESH Administration Insulin Aspart 1 vial 10/18/19 11:00 10/19/19 13:01 Novolog Vial Sliding Scale - SQ Not Given ACHS MITESH Protocol Lactulose 20 gm 10/18/19 22:00 10/19/19 10:40 Cephulac (Oral Use) PO 20 gm BID MITESH Administration Lorazepam 1 mg 10/18/19 22:00 10/19/19 10:40 Ativan - PO 1 mg BID MITESH Administration Morphine Sulfate 1 mg 10/18/19 16:44 Morphine Sulfate IVPUSH Q6H PRN PAIN LEVEL 6-10 Multivitamins/Minerals/Vitamin C 1 tab 10/19/19 10:00 10/19/19 10:41 Tab-A-Vit - PO 1 tab DAILY MITESH Administration Rifaximin 550 mg 10/18/19 22:00 10/19/19 10:41 Xifaxan - PO 550 mg BID MITESH Administration Spironolactone 50 mg 10/19/19 10:00 10/19/19 10:40 Aldactone - PO 50 mg DAILY MITESH Administration Thiamine HCl 100 mg 10/18/19 17:45 10/19/19 10:41 Vitamin B1 - PO 100 mg DAILY MITESH Administration Ultrasound of liver- splenic enlargement ;hterogeneous appearance to liver S/P paracentesis Impression: Advanced hepatocellular disease secondary to alcoholic liver disease. Pancytopenia secondary to liver disease, hypersplenism Plan : currrent regimen Detox. OBJECTIVE: ASSESSMENT AND PLAN:
--- NOTE | 2019-10-19 17:24 | CON.PSY ---
Psychiatry Consult Chief Complaint: 59 [place] old Male with Chronic Alcoholism, ASCitis , non compliant with treatment. Seen for Psych eval for Depression. Symptoms: reports: Irritability - Previous Psychiatric Treatment Outpatient: None Inpatient: None - Previous Substance Abuse Treatment Outpatient: More than 6 mos ago - Reason for Previous Treatment Reason for Previous Treatment: Alcohol Abuse - Current Medications Current Medications: Active Medications Folic Acid (Folic Acid -) 1 mg PO DAILY [facility] Last Admin: 10/19/19 10:41 Dose: 1 mg Famotidine/Sodium Chloride (Pepcid 20 Mg Premixed Ivpb -) 20 mg in 50 mls @ 100 mls/hr IVPB BID [facility] Last Admin: 10/19/19 10:41 Dose: 100 mls/hr Insulin Aspart (Novolog Vial Sliding Scale -) 1 vial SQ ACHS [facility]; Protocol Last Admin: 10/19/19 13:01 Dose: Not Given Lactulose (Cephulac (Oral Use)) 20 gm PO BID [facility] Last Admin: 10/19/19 10:40 Dose: 20 gm Lorazepam (Ativan -) 1 mg PO BID [facility] Last Admin: 10/19/19 10:40 Dose: 1 mg Morphine Sulfate (Morphine Sulfate) 1 mg IVPUSH Q6H PRN PRN Reason: PAIN LEVEL 6-10 Multivitamins/Minerals/Vitamin C (Tab-A-Vit -) 1 tab PO DAILY [facility] Last Admin: 10/19/19 10:41 Dose: 1 tab Rifaximin (Xifaxan -) 550 mg PO BID [facility] Last Admin: 10/19/19 10:41 Dose: 550 mg Spironolactone (Aldactone -) 50 mg PO DAILY [facility] Last Admin: 10/19/19 10:40 Dose: 50 mg Thiamine HCl (Vitamin B1 -) 100 mg PO DAILY [facility] Last Admin: 10/19/19 10:41 Dose: 100 mg - Allergies Allergies: Allergies Allergy/AdvReac Type Severity Reaction Status Date / Time aspirin Allergy Verified 10/17/19 19:02 - Current Living Status Usual Living Arrangement: Alone - Current Mental Status Evaluation Appearance: Disheveled Attitude: Guarded - Affect Affect: Constrictive Appropriateness: Appropriate to Content - Mood Mood: Euthymic - Speech/Language Expressive: Coherent - Psychomotor Activity Psychomotor Activity: Normal - Thought Process Thought Process: Intact - Thought Content Hallucinations: Absent Delusions: Absent - Self Perception Self Perception: No Impairment - Cognition Attention: Alert Orientation: Time Memory, Short Term: 2/3 Memory, Remote with Promptin/3 - Concentration Serial Sevens Intact: No Simple Calculations Intact: No - Abstraction Proverb Interpretation: Impaired Judgement: Moderately Impaired - Insight Insight: Impaired - Impulse Control Impulse Control: Good Control - Suicidal Ideation Suicidal Ideation: No - Homicidal Ideation Homicidal Ideation: No Assessment/Plan 1) Patient is not Clinically DEpressed at this time. 2) Discharge when Medically stable, no Psych follow up needed.
--- NOTE | 2019-10-19 23:02 | CONSULT ---
Consult Consult Specialty:: endocrine Referred by:: jacinta jacobson Reason for Consultation:: dm t 2 - History of Present Illness Chief Complaint: abdominal pain History of Present Illness: 59 y male speaking,pmh liver cirhosis,alchol abuse,ascites, encephalopathy,has elevated blood sugars and electrolyte imbalance.poorly compliant with medication and medical care.family unable to provide information for lack of contact with patient. - Past Medical History Cardio/Vascular: Yes: HTN Gastrointestinal: Yes: Peptic Ulcer Disease Hepatobiliary: Yes: Cirrhosis Endocrine: Yes: Diabetes Mellitus - Alcohol/Substance Use Hx Alcohol Use: Yes (Alcohol Abuse- last drink 3 days ago) - Smoking History Smoking history: Never smoked - Social History Usual Living Arrangement: Alone ADL: Independent History of Recent Travel: No Home Medications - Allergies Allergies/Adverse Reactions: Allergies Allergy/AdvReac Type Severity Reaction Status Date / Time aspirin Allergy Verified 10/17/19 19:02 Review of Systems - Review of Systems Constitutional: reports: Lethargy, Weakness Eyes: reports: No Symptoms HENT: reports: No Symptoms Neck: reports: No Symptoms Cardiovascular: reports: Shortness of Breath Respiratory: reports: Exercise Intolerance, SOB on Exertion Gastrointestinal: reports: Abdominal Pain, Bloating Genitourinary: reports: No Symptoms Musculoskeletal: reports: Joint Pain, Muscle Weakness Physical Exam Vital Signs: Vital Signs Temperature 99.1 F 10/19/19 18:53 Pulse Rate 99 H 10/19/19 18:53 Respiratory Rate 18 10/19/19 18:53 Blood Pressure 132/83 10/19/19 18:53 O2 Sat by Pulse Oximetry (%) 96 10/19/19 12:13 Constitutional: Yes: Anxious Eyes: Yes: EOM Intact HENT: Yes: Normocephalic Neck: Yes: Trachea Midline Cardiovascular: Yes: Regular Rate and Rhythm Respiratory: Yes: CTA Bilaterally Gastrointestinal: Yes: Abdomen, Obese, Ascites ...Rectal Exam: Yes: Deferred Renal/: Yes: WNL Musculoskeletal: Yes: Back Pain, Muscle Pain, Muscle Weakness Extremities: Yes: WNL Edema: No Edema: LLE: 1+, RLE: 1+ Neurological: Yes: Lethargy Labs: CBC, BMP 10/18/19 05:35 10/18/19 05:35 Problem List - Problems (1) Abdominal pain Problems reviewed: Yes Code(s): R10.9 - UNSPECIFIED ABDOMINAL PAIN (2) Abnormal blood electrolyte level Problems reviewed: Yes Code(s): E87.8 - OTH DISORDERS OF ELECTROLYTE AND FLUID BALANCE, NEC (3) Alcohol dependence Problems reviewed: Yes Code(s): F10.20 - ALCOHOL DEPENDENCE, UNCOMPLICATED (4) Alcoholic cirrhosis of liver with ascites Problems reviewed: Yes Code(s): K70.31 - ALCOHOLIC CIRRHOSIS OF LIVER WITH ASCITES (5) Ascites Problems reviewed: Yes Code(s): R18.8 - OTHER ASCITES Qualifiers: Ascites type: due to alcoholic cirrhosis Qualified Code(s): K70.31 - Alcoholic cirrhosis of liver with ascites (6) Cirrhosis of liver with ascites Problems reviewed: Yes Code(s): K74.60 - UNSPECIFIED CIRRHOSIS OF LIVER; R18.8 - OTHER ASCITES (7) Elevated troponin Code(s): R79.89 - OTHER SPECIFIED ABNORMAL FINDINGS OF BLOOD CHEMISTRY (8) HTN (hypertension) Code(s): I10 - ESSENTIAL (PRIMARY) HYPERTENSION (9) Hyperglycemia, unspecified Problems reviewed: Yes Code(s): R73.9 - HYPERGLYCEMIA, UNSPECIFIED Assessment/Plan Current Active Problems Abdominal pain (Acute) Abnormal blood electrolyte level (Acute) Alcohol dependence (Acute) Alcoholic cirrhosis of liver with ascites (Acute) Ascites (Acute) Cirrhosis of liver with ascites (Acute) Elevated troponin (Acute) HTN (hypertension) (Acute) Hyperglycemia (Acute) PUD (peptic ulcer disease) (Acute) Serum ammonia increased (Acute) Thrombocytopenia (Acute) Uncontrolled diabetes mellitus (Acute) Laboratory Results - last 24 hr 10/18/19 10/18/19 10/18/19 15:00 15:00 15:00 POC Glucometer POC Fluid pH Fluid Glucose Fluid Total Protein Fluid Albumin Cancelled Fluid Amylase Cancelled Fluid Cholesterol Cancelled 10/18/19 10/18/19 10/18/19 15:00 15:00 15:00 POC Glucometer POC Fluid pH Cancelled Fluid Glucose Cancelled Fluid Total Protein Cancelled Fluid Albumin Fluid Amylase Fluid Cholesterol 10/19/19 10/19/19 10/19/19 09:12 11:11 16:45 POC Glucometer 303 183 305 POC Fluid pH Fluid Glucose Fluid Total Protein Fluid Albumin Fluid Amylase Fluid Cholesterol 10/19/19 22:35 POC Glucometer 225 POC Fluid pH Fluid Glucose Fluid Total Protein Fluid Albumin Fluid Amylase Fluid Cholesterol Laboratory Tests 10/19/19 10/19/19 10/19/19 09:12 11:11 16:45 POC Glucometer 303 183 305 10/19/19 22:35 POC Glucometer 225 plan: bgm achs glimiperide 1mg daily dose titrate diabetic teaching vns
[2019-10-20] MEDS: GLIMEPIRIDE 1 MG TABLET (FP) PO SCH (06:55)
[2019-10-20] MEDS: INSULIN SLIDING SCALE (NOVOLOG) 1 VIAL SQ SCH ×4 (06:55→21:23)
[2019-10-20] MEDS ORDERED: PT OWN MED DRAWER 7, Y5N ONE ×2 (07:08→15:41)
[2019-10-20] MEDS ORDERED: INSULIN (NOVOLOG) ASPART 100 UNITS/ML 10ML VIAL ONE (07:09)
[2019-10-20 08:08] LABS: HEMATOCRIT 32.8 % (35.4-49); HEMOGLOBIN 10.9 GM/dL (11.7-16.9); MCHC 33.2 g/dl (32.0-35.9); MEAN CELL VOLUME 102.4 fl (80-96); MEAN PLT VOLUME 8.8 fl (7.5-11.1); PLATELET COUNT 96 K/MM3 (134-434); RBC 3.21 M/mm3 (4.00-5.60); RDW 21.9 % (11.9-15.9); WHITE BLOOD COUNT 3.8 K/mm3 (4.0-10.0)
--- NOTE | 2019-10-20 08:09 | PN ---
Progress Note (short form) - Note Progress Note: Patient seen and examined LABS PENDING Complains of cough Last Vital Signs Temp Pulse Resp BP Pulse Ox 98.4 F 89 16 117/69 100 10/19/19 22:00 10/19/19 22:00 10/19/19 22:00 10/19/19 22:00 10/19/19 21:00 HEENT: DAYANNA, EOM Intact Oropharynx: No thrush, No mucositis Cor: RSR, systolic murmur Lungs: scattered rhonchi Abd: fluid wave Ext:No significant edema Skin: No rashes, Integument intact Current Medications Generic Name Dose Route Start Last Admin Trade Name Freq PRN Reason Stop Dose Admin Folic Acid 1 mg 10/19/19 10:00 10/19/19 10:41 Folic Acid - PO 1 mg DAILY MITESH Administration Glimepiride 1 mg 10/20/19 07:00 10/20/19 06:55 Amaryl - PO 1 mg DAILY@0700 MITESH Administration Famotidine/Sodium Chloride 20 mg in 50 mls @ 100 mls/hr 10/18/19 10:00 22:31 Pepcid 20 Mg Premixed Ivpb - IVPB 100 mls/hr BID MITESH Administration Insulin Aspart 1 vial 10/20/19 07:00 10/20/19 06:55 Novolog Vial Sliding Scale - SQ 8 units ACHS MITESH Administration Protocol Lactulose 20 gm 10/18/19 22:00 10/19/19 22:31 Cephulac (Oral Use) PO 20 gm BID MITESH Administration Lorazepam 1 mg 10/18/19 22:00 10/19/19 22:31 Ativan - PO 1 mg BID MITESH Administration Morphine Sulfate 1 mg 10/18/19 16:44 Morphine Sulfate IVPUSH Q6H PRN PAIN LEVEL 6-10 Multivitamins/Minerals/Vitamin C 1 tab 10/19/19 10:00 10/19/19 10:41 Tab-A-Vit - PO 1 tab DAILY MITESH Administration Rifaximin 550 mg 10/18/19 22:00 10/19/19 22:31 Xifaxan - PO 550 mg BID MITESH Administration Spironolactone 50 mg 10/19/19 10:00 10/19/19 10:40 Aldactone - PO 50 mg DAILY MITESH Administration Thiamine HCl 100 mg 10/18/19 17:45 10/19/19 10:41 Vitamin B1 - PO 100 mg DAILY MITESH Administration Impression: Alcoholic liver disease Cirrhosis Pancytopenia secondary to liver disease , hypersplenism and portal hypertension Await labs s/p paracentesis Plan: Follow up GI Detox Social service ENT for hearing deficit
[2019-10-20 08:41] LABS: ALBUMIN 2.1 g/dl (3.4-5.0); BILIRUBIN,TOTAL 2.2 mg/dL (0.2-1); BLOOD UREA NITROGEN 5.2 mg/dL (7-18); CALCIUM 8.7 mg/dL (8.5-10.1); CREATININE 0.8 mg/dL (0.55-1.3); POTASSIUM 3.3 mmol/L (3.5-5.1); TOT PROT 6.6 g/dl (6.4-8.2)
[2019-10-20] MEDS ORDERED: POTASSIUM CHLORIDE TABS 20 MEQ TABLET.ER (FP) PO ONE (08:43)
--- NOTE | 2019-10-20 09:27 | PN ---
Progress Note, Physician - Current Medication List Current Medications: Active Medications Folic Acid (Folic Acid -) 1 mg PO DAILY [facility] Last Admin: 10/19/19 10:41 Dose: 1 mg Glimepiride (Amaryl -) 1 mg PO DAILY@0700 [facility] Last Admin: 10/20/19 06:55 Dose: 1 mg Famotidine/Sodium Chloride (Pepcid 20 Mg Premixed Ivpb -) 20 mg in 50 mls @ 100 mls/hr IVPB BID [facility] Last Admin: 10/19/19 22:31 Dose: 100 mls/hr Insulin Aspart (Novolog Vial Sliding Scale -) 1 vial SQ ACHS [facility]; Protocol Last Admin: 10/20/19 06:55 Dose: 8 units Lactulose (Cephulac (Oral Use)) 20 gm PO BID [facility] Last Admin: 10/19/19 22:31 Dose: 20 gm Lorazepam (Ativan -) 1 mg PO BID [facility] Last Admin: 10/19/19 22:31 Dose: 1 mg Morphine Sulfate (Morphine Sulfate) 1 mg IVPUSH Q6H PRN PRN Reason: PAIN LEVEL 6-10 Multivitamins/Minerals/Vitamin C (Tab-A-Vit -) 1 tab PO DAILY [facility] Last Admin: 10/19/19 10:41 Dose: 1 tab Rifaximin (Xifaxan -) 550 mg PO BID [facility] Last Admin: 10/19/19 22:31 Dose: 550 mg Spironolactone (Aldactone -) 50 mg PO DAILY [facility] Last Admin: 10/19/19 10:40 Dose: 50 mg Thiamine HCl (Vitamin B1 -) 100 mg PO DAILY [facility] Last Admin: 10/19/19 10:41 Dose: 100 mg - Objective Vital Signs: Vital Signs Temperature 98.4 F 10/19/19 22:00 Pulse Rate 89 10/19/19 22:00 Respiratory Rate 16 10/19/19 22:00 Blood Pressure 117/69 10/19/19 22:00 O2 Sat by Pulse Oximetry (%) 100 10/19/19 21:00 Cardiovascular: Yes: Regular Rate and Rhythm Respiratory: Yes: Regular, CTA Bilaterally Gastrointestinal: Yes: Normal Bowel Sounds, Soft, Ascites Labs: CBC, BMP 10/20/19 06:40 10/20/19 06:40 INR, PTT INR 1.27 (0.83-1.09) H 10/17/19 19:31 Assessment/Plan - Problems (1) Abdominal pain Assessment/Plan: -2/2 Ascites -Abdominal US shows moderate to marked ascites -pain control Code(s): R10.9 - UNSPECIFIED ABDOMINAL PAIN (2) Cirrhosis of liver with ascites Assessment/Plan: -GI on board -Ammonia 63.70 -Lactulose BID-TID -Abdominal US moderate to marked ascites -s/p paracentesis with 5L removed -daily weights -fluid restrictions -pending result cytology of ascites fluid Code(s): K74.60 - UNSPECIFIED CIRRHOSIS OF LIVER; R18.8 - OTHER ASCITES (3) Hyperglycemia Assessment/Plan: -ISS -HgA1c -Endocrinology consult Code(s): R73.9 - HYPERGLYCEMIA, UNSPECIFIED (4) Alcohol dependence Assessment/Plan: -Dr Espinoza -Ativan BID--Librium 10 tid -MVI, Folic Acid, Thiamine -neuro checks -seizure precaution -fall risk precautions -Psych consult Code(s): F10.20 - ALCOHOL DEPENDENCE, UNCOMPLICATED (5) Elevated troponin Assessment/Plan: -Cardiology consult -troponin 0.09, 0.10 Code(s): R79.89 - OTHER SPECIFIED ABNORMAL FINDINGS OF BLOOD CHEMISTRY (6) Serum ammonia increased Assessment/Plan: -Ammonia 63.70 -Lactulose BID Code(s): E72.20 - DISORDER OF UREA CYCLE METABOLISM, UNSPECIFIED (7) Thrombocytopenia Assessment/Plan: -PLT improved -Hematology consult noted Code(s): D69.6 - THROMBOCYTOPENIA, UNSPECIFIED
[2019-10-20] MEDS: LORazepam 1 MG TABLET PO SCH (09:45)
[2019-10-20] MEDS: RIFAXIMIN 550 MG TABLET (UD) PO SCH ×2 (10:00→21:22)
[2019-10-20] MEDS: FOLIC ACID 1 MG TABLET (FP) PO SCH (10:00)
[2019-10-20] MEDS: SPIRONOLACTONE 25 MG TABLET (FP) PO SCH (10:00)
[2019-10-20] MEDS: THIAMINE HCL 100 MG TABLET (FP) PO SCH (10:00)
[2019-10-20] MEDS: MULTIVITAMINS (DAILY MVI) TABLET (FP) PO SCH (10:00)
--- NOTE | 2019-10-20 10:49 | PN.GI ---
GI Progress Note Subjective: more alert awake and oriented - Objective Vital Signs: Vital Signs Temperature 98.4 F 10/19/19 22:00 Pulse Rate 89 10/19/19 22:00 Respiratory Rate 16 10/19/19 22:00 Blood Pressure 117/69 10/19/19 22:00 O2 Sat by Pulse Oximetry (%) 100 10/19/19 21:00 Constitutional: No Distress Eyes: Yes: Conjunctiva Clear HENT: Yes: Atraumatic Neck: Yes: Supple Cardiovascular: Yes: Regular Rate and Rhythm Respiratory: Yes: CTA Bilaterally ...Auscultate: Yes: No Bowel Sounds ...Palpate: Yes: Soft. No: Firm/Rigid, Guarding, Hepatomegaly, Mass, Pulsatile Mass ...Percussion: Yes: Fluid Wave Edema: No Labs: CBC, BMP 10/20/19 06:40 10/20/19 06:40 INR, PTT INR 1.27 (0.83-1.09) H 10/17/19 19:31 Problem List - Problems (1) Alcoholic cirrhosis of liver with ascites Assessment/Plan: R> maintain on Aldactone 50mg daily Lasix 20 mg daily Code(s): K70.31 - ALCOHOLIC CIRRHOSIS OF LIVER WITH ASCITES (2) Hepatic encephalopathy Assessment/Plan: reasolved Code(s): K72.90 - HEPATIC FAILURE, UNSPECIFIED WITHOUT COMA
[2019-10-20] MEDS ORDERED: chlordiazePOXIDE HCL 10 MG CAPSULE PO SCH (14:00)
[2019-10-20] MEDS: guaiFENesin 200 MG/10 ML 10 ML UNIT-DOSE CUPS PO PRN ×2 (15:30→20:48)
[2019-10-20] MEDS: AMMONIUM LACTATE 12% LOTION 225 GM BOTTLE TP SCH ×2 (15:43→21:25)
[2019-10-20] MEDS: TRIAMCINOLONE ACET 0.1% 60 ML LOTION TP SCH ×2 (15:43→21:24)
[2019-10-20] MEDS: chlordiazePOXIDE HCL 25 MG CAPSULE PO SCH ×2 (15:43→21:22)
[2019-10-20] MEDS: FUROSEMIDE 20 MG TABLET (FP) PO SCH (15:44)
[2019-10-20] MEDS: LACTULOSE 20 GM/30 ML UDC (FOR ORAL USE ONLY) PO SCH ×2 (15:44→23:00)
[2019-10-21] MEDS: LACTULOSE 20 GM/30 ML UDC (FOR ORAL USE ONLY) PO SCH ×3 (05:18→22:05)
[2019-10-21 07:38] LABS: BASO % 1.3 % (0-2.0); EOS % 5.9 % (0-4.5); HEMATOCRIT 34.2 % (35.4-49); HEMOGLOBIN 11.4 GM/dL (11.7-16.9); LYMPH % 21.4 % (8-40); MCH 33.9 pg (25.7-33.7); MCHC 33.3 g/dl (32.0-35.9); MEAN CELL VOLUME 101.6 fl (80-96); MEAN PLT VOLUME 8.7 fl (7.5-11.1); MONO % 13.2 % (3.8-10.2); NEUT % 58.2 % (42.8-82.8); PLATELET COUNT 94 K/MM3 (134-434); RBC 3.36 M/mm3 (4.00-5.60); RDW 21.2 % (11.9-15.9); WHITE BLOOD COUNT 5.3 K/mm3 (4.0-10.0)
[2019-10-21] MEDS: GLIMEPIRIDE 1 MG TABLET (FP) PO SCH (07:44)
[2019-10-21] MEDS: INSULIN SLIDING SCALE (NOVOLOG) 1 VIAL SQ SCH ×4 (07:45→22:06)
[2019-10-21 07:56] LABS: ALBUMIN 2.4 g/dl (3.4-5.0); BLOOD UREA NITROGEN 7.5 mg/dL (7-18); CALCIUM 8.7 mg/dL (8.5-10.1); CREATININE 0.9 mg/dL (0.55-1.3); POTASSIUM 3.7 mmol/L (3.5-5.1); TOT PROT 7.1 g/dl (6.4-8.2)
--- NOTE | 2019-10-21 09:46 | PN ---
Progress Note (short form) - Note Progress Note: Patient seen and examined Complains of some abdominal pains Some non- productive cough RUE - pain prior IV site Last Vital Signs Temp Pulse Resp BP Pulse Ox 97.5 F L 98 H 18 135/88 99 10/21/19 06:00 10/21/19 06:00 10/21/19 06:00 10/21/19 06:00 10/20/19 21:00 HEENT: DAYANNA, EOM Intact Oropharynx: No thrush, No mucositis Cor: RSR, No murmurs, No gallops Lungs: diminished breath sounds bilaterally Abd: Soft, Normal bowel sounds, No organomegaly,fluid wave Ext:No significant edema Skin: No rashes, Integument intact CBC, BMP 10/21/19 07:00 10/21/19 07:00 Current Medications Generic Name Dose Route Start Last Admin Trade Name Freq PRN Reason Stop Dose Admin Chlordiazepoxide HCl 25 mg 10/20/19 15:15 10/20/19 21:22 Librium - PO 25 mg QID MITESH Administration Folic Acid 1 mg 10/19/19 10:00 10/20/19 10:00 Folic Acid - PO 1 mg DAILY MITESH Administration Furosemide 20 mg 10/20/19 11:00 10/20/19 15:44 Lasix - PO 20 mg DAILY MITESH Administration Glimepiride 1 mg 10/20/19 07:00 10/21/19 07:44 Amaryl - PO 1 mg DAILY@0700 MITESH Administration Guaifenesin 10 ml 10/20/19 15:15 10/20/19 20:48 Robitussin - PO 10 ml Q6H PRN Administration COUGH Insulin Aspart 1 vial 10/20/19 07:00 10/21/19 07:45 Novolog Vial Sliding Scale - SQ 6 units ACHS MITESH Administration Protocol Lactic Acid 1 applic 10/20/19 10:45 10/20/19 21:25 Lac-Hydrin 12 TP 1 applic BID MITESH Administration Lactulose 20 gm 10/20/19 14:00 10/21/19 05:18 Cephulac (Oral Use) PO 20 gm TID MITESH Administration Multivitamins/Minerals/Vitamin C 1 tab 10/19/19 10:00 10/20/19 10:00 Tab-A-Vit - PO 1 tab DAILY MITESH Administration Rifaximin 550 mg 10/18/19 22:00 10/20/19 21:22 Xifaxan - PO 550 mg BID MITESH Administration Spironolactone 50 mg 10/19/19 10:00 10/20/19 10:00 Aldactone - PO 50 mg DAILY MITESH Administration Thiamine HCl 100 mg 10/18/19 17:45 10/20/19 10:00 Vitamin B1 - PO 100 mg DAILY MITESH Administration Triamcinolone Acetonide 1 applic 10/20/19 10:45 10/20/19 21:24 Aristocort 0.1% Lotion - TP 1 applic BID MITESH Administration Impression: Alcoholic liver disease Cirrhosis S/P paracentesis Thrombocytopenia - secondary to liver disease Plan: Continuing current management with lactulose and aldactone Monitoring labs Social service
[2019-10-21] MEDS: chlordiazePOXIDE HCL 25 MG CAPSULE PO SCH ×4 (09:57→22:05)
[2019-10-21] MEDS: FOLIC ACID 1 MG TABLET (FP) PO SCH (09:57)
[2019-10-21] MEDS: RIFAXIMIN 550 MG TABLET (UD) PO SCH ×2 (09:57→22:05)
[2019-10-21] MEDS: MULTIVITAMINS (DAILY MVI) TABLET (FP) PO SCH (09:58)
[2019-10-21] MEDS: SPIRONOLACTONE 25 MG TABLET (FP) PO SCH (09:58)
[2019-10-21] MEDS: FUROSEMIDE 20 MG TABLET (FP) PO SCH (09:58)
[2019-10-21] MEDS: THIAMINE HCL 100 MG TABLET (FP) PO SCH (09:59)
[2019-10-21] MEDS: AMMONIUM LACTATE 12% LOTION 225 GM BOTTLE TP SCH ×2 (09:59→22:05)
--- NOTE | 2019-10-21 11:31 | PN ---
Progress Note, Physician Chief Complaint: Liver Cirrhosis Ascites Abdominal Pain History of Present Illness: Previous notes and events reviewed awake and alert NAD denies complaints of pain continues to be confused noted with generalized rash - Current Medication List Current Medications: Active Medications Chlordiazepoxide HCl (Librium -) 25 mg PO QID [facility] Last Admin: 10/21/19 09:57 Dose: 25 mg Folic Acid (Folic Acid -) 1 mg PO DAILY [facility] Last Admin: 10/21/19 09:57 Dose: 1 mg Furosemide (Lasix -) 20 mg PO DAILY [facility] Last Admin: 10/21/19 09:58 Dose: 20 mg Glimepiride (Amaryl -) 1 mg PO DAILY@0700 [facility] Last Admin: 10/21/19 07:44 Dose: 1 mg Guaifenesin (Robitussin -) 10 ml PO Q6H PRN PRN Reason: COUGH Last Admin: 10/20/19 20:48 Dose: 10 ml Insulin Aspart (Novolog Vial Sliding Scale -) 1 vial SQ ACHS [facility]; Protocol Last Admin: 10/21/19 07:45 Dose: 6 units Lactic Acid (Lac-Hydrin 12) 1 applic TP BID [facility] Last Admin: 10/21/19 09:59 Dose: 1 applic Lactulose (Cephulac (Oral Use)) 20 gm PO TID [facility] Last Admin: 10/21/19 05:18 Dose: 20 gm Multivitamins/Minerals/Vitamin C (Tab-A-Vit -) 1 tab PO DAILY [facility] Last Admin: 10/21/19 09:58 Dose: 1 tab Rifaximin (Xifaxan -) 550 mg PO BID [facility] Last Admin: 10/21/19 09:57 Dose: 550 mg Spironolactone (Aldactone -) 50 mg PO DAILY [facility] Last Admin: 10/21/19 09:58 Dose: 50 mg Thiamine HCl (Vitamin B1 -) 100 mg PO DAILY [facility] Last Admin: 10/21/19 09:59 Dose: 100 mg Triamcinolone Acetonide (Aristocort 0.1% Lotion -) 1 applic TP BID [facility] Last Admin: 10/20/19 21:24 Dose: 1 applic - Objective Vital Signs: Vital Signs Temperature 97.5 F L 10/21/19 06:00 Pulse Rate 98 H 10/21/19 06:00 Respiratory Rate 18 10/21/19 06:00 Blood Pressure 135/88 10/21/19 06:00 O2 Sat by Pulse Oximetry (%) 99 10/20/19 21:00 Constitutional: Yes: No Distress, Calm HENT: Yes: Atraumatic Cardiovascular: Yes: Regular Rate and Rhythm Respiratory: Yes: Regular, CTA Bilaterally Gastrointestinal: Yes: Normal Bowel Sounds, Soft, Ascites Musculoskeletal: Yes: WNL Extremities: Yes: WNL Edema: No Integumentary: Yes: Other (scars-abdomen) Neurological: Yes: Alert, Confusion Psychiatric: Yes: Alert Labs: CBC, BMP 10/21/19 07:00 10/21/19 07:00 INR, PTT INR 1.27 (0.83-1.09) H 10/17/19 19:31 Microbiology 10/18/19 15:00 Gram Stain - Final Ascites Body Fluid Culture - Final NO GROWTH OF AEROBIC ORGANISMS AFTER 48 HOURS INCUBATION Anaerobic Culture - Final NO ANAEROBES WERE ISOLATED 10/18/19 15:00 AFB Smear Concentration - Final Ascites Mycobacterial Culture - Preliminary Problem List - Problems (1) Abdominal pain Assessment/Plan: -2/2 Ascites -Abdominal US shows moderate to marked ascites -pain control Code(s): R10.9 - UNSPECIFIED ABDOMINAL PAIN (2) Cirrhosis of liver with ascites Assessment/Plan: -GI on board -Ammonia 43.4 -Lactulose BID -Abdominal US moderate to marked ascites -s/p paracentesis with 5L removed -daily weights -fluid restrictions -pending result cytology of ascites fluid -Aldactone -Xifaxin BID Code(s): K74.60 - UNSPECIFIED CIRRHOSIS OF LIVER; R18.8 - OTHER ASCITES (3) Hyperglycemia Assessment/Plan: -ISS -HgA1c 10.5% -Endocrinology consult -Glimperide Code(s): R73.9 - HYPERGLYCEMIA, UNSPECIFIED (4) Alcohol dependence Assessment/Plan: -Dr Espinoza -Ativan BID -MVI, Folic Acid, Thiamine -neuro checks -seizure precaution -fall risk precautions -Psych consult Code(s): F10.20 - ALCOHOL DEPENDENCE, UNCOMPLICATED (5) Elevated troponin Assessment/Plan: -Cardiology consult -troponin 0.09, 0.10 Code(s): R79.89 - OTHER SPECIFIED ABNORMAL FINDINGS OF BLOOD CHEMISTRY (6) Serum ammonia increased Assessment/Plan: -Ammonia 43.4 -Lactulose BID Code(s): E72.20 - DISORDER OF UREA CYCLE METABOLISM, UNSPECIFIED (7) Thrombocytopenia Assessment/Plan: -PLT 94 -Hematology on board Code(s): D69.6 - THROMBOCYTOPENIA, UNSPECIFIED Assessment/Plan see problem list dvt ppx
[2019-10-21] MEDS: TRIAMCINOLONE ACET 0.1% 60 ML LOTION TP SCH ×2 (12:29→22:11)
[2019-10-21 16:07] LABS: BODY FLUID ALBUMIN 0.6 g/dL (Not Estab.)
[2019-10-21] MEDS: MAG HYDROX/AL HYDROX/SIMETH 30 ML UNIT-DOSE CUP PO PRN (19:58)
[2019-10-21] MEDS ORDERED: INSULIN (NOVOLOG) ASPART 100 UNITS/ML 10ML VIAL ONE (20:38)
[2019-10-21 21:11] LABS: HEP B CORE AB, TOT Negative (Negative)
[2019-10-22] MEDS ORDERED: PT OWN MED DRAWER 7, Y5N ONE ×2 (05:50→09:17)
[2019-10-22] MEDS: INSULIN SLIDING SCALE (NOVOLOG) 1 VIAL SQ SCH ×4 (06:39→22:34)
[2019-10-22] MEDS: LACTULOSE 20 GM/30 ML UDC (FOR ORAL USE ONLY) PO SCH ×3 (06:39→22:34)
[2019-10-22] MEDS: GLIMEPIRIDE 1 MG TABLET (FP) PO SCH (06:39)
[2019-10-22] MEDS: MAG HYDROX/AL HYDROX/SIMETH 30 ML UNIT-DOSE CUP PO PRN (06:45)
[2019-10-22 08:48] LABS: HEMATOCRIT 35.4 % (35.4-49); HEMOGLOBIN 11.8 GM/dL (11.7-16.9); MCH 33.6 pg (25.7-33.7); MCHC 33.2 g/dl (32.0-35.9); MEAN PLT VOLUME 9.6 fl (7.5-11.1); PLATELET COUNT 141 K/MM3 (134-434); RDW 22.2 % (11.9-15.9); WHITE BLOOD COUNT 5.9 K/mm3 (4.0-10.0)
[2019-10-22 09:20] LABS: ALBUMIN 2.5 g/dl (3.4-5.0); BILIRUBIN,TOTAL 2.7 mg/dL (0.2-1); BLOOD UREA NITROGEN 5.9 mg/dL (7-18); CALCIUM 9.4 mg/dL (8.5-10.1); CREATININE 0.9 mg/dL (0.55-1.3); POTASSIUM 4.2 mmol/L (3.5-5.1); TOT PROT 7.6 g/dl (6.4-8.2)
[2019-10-22] MEDS: RIFAXIMIN 550 MG TABLET (UD) PO SCH ×2 (09:20→22:34)
[2019-10-22] MEDS: FUROSEMIDE 20 MG TABLET (FP) PO SCH (09:20)
[2019-10-22] MEDS: THIAMINE HCL 100 MG TABLET (FP) PO SCH (09:20)
[2019-10-22] MEDS: SPIRONOLACTONE 25 MG TABLET (FP) PO SCH (09:20)
[2019-10-22] MEDS: MULTIVITAMINS (DAILY MVI) TABLET (FP) PO SCH (09:20)
[2019-10-22] MEDS: FOLIC ACID 1 MG TABLET (FP) PO SCH (09:20)
[2019-10-22] MEDS: chlordiazePOXIDE HCL 25 MG CAPSULE PO SCH ×3 (09:27→22:34)
[2019-10-22] MEDS: AMMONIUM LACTATE 12% LOTION 225 GM BOTTLE TP SCH ×2 (09:31→22:34)
[2019-10-22] MEDS: TRIAMCINOLONE ACET 0.1% 60 ML LOTION TP SCH ×2 (09:32→22:34)
--- NOTE | 2019-10-22 11:13 | PN ---
Progress Note, Physician - Current Medication List Current Medications: Active Medications Al Hydroxide/Mg Hydroxide (Mylanta Oral Suspension -) 30 ml PO Q6H PRN PRN Reason: DYSPEPSIA Last Admin: 10/22/19 06:45 Dose: 30 ml Chlordiazepoxide HCl (Librium -) 25 mg PO QID [facility] Last Admin: 10/22/19 09:27 Dose: Not Given Folic Acid (Folic Acid -) 1 mg PO DAILY [facility] Last Admin: 10/22/19 09:20 Dose: 1 mg Furosemide (Lasix -) 20 mg PO DAILY [facility] Last Admin: 10/22/19 09:20 Dose: 20 mg Glimepiride (Amaryl -) 1 mg PO DAILY@0700 [facility] Last Admin: 10/22/19 06:39 Dose: 1 mg Guaifenesin (Robitussin -) 10 ml PO Q6H PRN PRN Reason: COUGH Last Admin: 10/20/19 20:48 Dose: 10 ml Insulin Aspart (Novolog Vial Sliding Scale -) 1 vial SQ ACHS [facility]; Protocol Last Admin: 10/22/19 06:39 Dose: 4 units Lactic Acid (Lac-Hydrin 12) 1 applic TP BID [facility] Last Admin: 10/22/19 09:31 Dose: 1 applic Lactulose (Cephulac (Oral Use)) 20 gm PO TID [facility] Last Admin: 10/22/19 06:39 Dose: 20 gm Multivitamins/Minerals/Vitamin C (Tab-A-Vit -) 1 tab PO DAILY [facility] Last Admin: 10/22/19 09:20 Dose: 1 tab Rifaximin (Xifaxan -) 550 mg PO BID [facility] Last Admin: 10/22/19 09:20 Dose: 550 mg Spironolactone (Aldactone -) 50 mg PO DAILY [facility] Last Admin: 10/22/19 09:20 Dose: 50 mg Thiamine HCl (Vitamin B1 -) 100 mg PO DAILY [facility] Last Admin: 10/22/19 09:20 Dose: 100 mg Triamcinolone Acetonide (Aristocort 0.1% Lotion -) 1 applic TP BID [facility] Last Admin: 10/22/19 09:32 Dose: 1 applic - Objective Vital Signs: Vital Signs Temperature 98.5 F 10/22/19 06:18 Pulse Rate 95 H 10/22/19 06:18 Respiratory Rate 18 10/22/19 06:18 Blood Pressure 122/67 10/22/19 06:18 O2 Sat by Pulse Oximetry (%) 96 10/21/19 21:00 Cardiovascular: Yes: S1, S2 Respiratory: Yes: Regular, CTA Bilaterally Gastrointestinal: Yes: Normal Bowel Sounds, Soft, Ascites. No: Tenderness Labs: CBC, BMP 10/22/19 08:17 10/22/19 08:17 INR, PTT INR 1.27 (0.83-1.09) H 10/17/19 19:31 Assessment/Plan - Problems (1) Abdominal pain Assessment/Plan: -Resolved -2/2 Ascites -s/p paracentesis Code(s): R10.9 - UNSPECIFIED ABDOMINAL PAIN (2) Cirrhosis of liver with ascites Assessment/Plan: -GI on board -Ammonia 63.70 -Lactulose BID-TID -Abdominal US moderate to marked ascites -s/p paracentesis with 5L removed -daily weights -fluid restrictions -pending result cytology of ascites fluid Code(s): K74.60 - UNSPECIFIED CIRRHOSIS OF LIVER; R18.8 - OTHER ASCITES (3) Hyperglycemia Assessment/Plan: -ISS -HgA1c -Endocrinology consult Code(s): R73.9 - HYPERGLYCEMIA, UNSPECIFIED (4) Alcohol dependence Assessment/Plan: -Dr Espinoza -Ativan BID--Librium 25 qid to tid -MVI, Folic Acid, Thiamine -neuro checks -seizure precaution -fall risk precautions -Psych consult Code(s): F10.20 - ALCOHOL DEPENDENCE, UNCOMPLICATED (5) Elevated troponin Assessment/Plan: -Cardiology consult -troponin 0.09, 0.10 Code(s): R79.89 - OTHER SPECIFIED ABNORMAL FINDINGS OF BLOOD CHEMISTRY (6) Serum ammonia increased Assessment/Plan: -Ammonia 63.70 -Lactulose BID Code(s): E72.20 - DISORDER OF UREA CYCLE METABOLISM, UNSPECIFIED (7) Thrombocytopenia Assessment/Plan: -PLT improved -Hematology consult noted Code(s): D69.6 - THROMBOCYTOPENIA, UNSPECIFIED
--- NOTE | 2019-10-22 19:00 | PN ---
GI Progress Note - Objective Vital Signs: Vital Signs Temperature 97.9 F 10/22/19 13:38 Pulse Rate 98 H 10/22/19 13:38 Respiratory Rate 20 10/22/19 13:38 Blood Pressure 124/63 10/22/19 13:38 O2 Sat by Pulse Oximetry (%) 97 10/22/19 09:00 Labs: CBC, BMP 10/22/19 08:17 10/22/19 08:17 INR, PTT INR 1.27 (0.83-1.09) H 10/17/19 19:31 Problem List - Problems (1) Alcoholic cirrhosis of liver with ascites Code(s): K70.31 - ALCOHOLIC CIRRHOSIS OF LIVER WITH ASCITES (2) Hepatic encephalopathy Code(s): K72.90 - HEPATIC FAILURE, UNSPECIFIED WITHOUT COMA
--- NOTE | 2019-10-22 21:40 | PN ---
Progress Note, Physician Chief Complaint: resting no complaint - Current Medication List Current Medications: Active Medications Al Hydroxide/Mg Hydroxide (Mylanta Oral Suspension -) 30 ml PO Q6H PRN PRN Reason: DYSPEPSIA Last Admin: 10/22/19 06:45 Dose: 30 ml Chlordiazepoxide HCl (Librium -) 25 mg PO TID [facility] Last Admin: 10/22/19 16:35 Dose: 25 mg Folic Acid (Folic Acid -) 1 mg PO DAILY [facility] Last Admin: 10/22/19 09:20 Dose: 1 mg Furosemide (Lasix -) 20 mg PO DAILY [facility] Last Admin: 10/22/19 09:20 Dose: 20 mg Glimepiride (Amaryl -) 1 mg PO DAILY@0700 [facility] Last Admin: 10/22/19 06:39 Dose: 1 mg Guaifenesin (Robitussin -) 10 ml PO Q6H PRN PRN Reason: COUGH Last Admin: 10/20/19 20:48 Dose: 10 ml Insulin Aspart (Novolog Vial Sliding Scale -) 1 vial SQ [facility]; Protocol Last Admin: 10/22/19 16:40 Dose: 4 units Lactic Acid (Lac-Hydrin 12) 1 applic TP BID [facility] Last Admin: 10/22/19 09:31 Dose: 1 applic Lactulose (Cephulac (Oral Use)) 20 gm PO TID [facility] Last Admin: 10/22/19 14:20 Dose: Not Given Multivitamins/Minerals/Vitamin C (Tab-A-Vit -) 1 tab PO DAILY [facility] Last Admin: 10/22/19 09:20 Dose: 1 tab Rifaximin (Xifaxan -) 550 mg PO BID [facility] Last Admin: 10/22/19 09:20 Dose: 550 mg Spironolactone (Aldactone -) 50 mg PO DAILY [facility] Last Admin: 10/22/19 09:20 Dose: 50 mg Thiamine HCl (Vitamin B1 -) 100 mg PO DAILY [facility] Last Admin: 10/22/19 09:20 Dose: 100 mg Triamcinolone Acetonide (Aristocort 0.1% Lotion -) 1 applic TP BID [facility] Last Admin: 10/22/19 09:32 Dose: 1 applic - Objective Vital Signs: Vital Signs Temperature 98.9 F 10/22/19 18:00 Pulse Rate 98 H 10/22/19 18:00 Respiratory Rate 20 10/22/19 18:00 Blood Pressure 105/58 L 10/22/19 18:00 O2 Sat by Pulse Oximetry (%) 97 10/22/19 09:00 Constitutional: Yes: Calm Eyes: Yes: EOM Intact HENT: Yes: Normocephalic Neck: Yes: Trachea Midline Cardiovascular: Yes: Regular Rate and Rhythm Respiratory: Yes: CTA Bilaterally Gastrointestinal: Yes: Normal Bowel Sounds, Abdomen, Obese, Ascites ...Rectal Exam: Yes: Deferred Breast(s): Yes: WNL Musculoskeletal: Yes: WNL Extremities: Yes: WNL Edema: Yes Neurological: Yes: Alert Psychiatric: Yes: Alert Labs: CBC, BMP 10/22/19 08:17 10/22/19 08:17 INR, PTT INR 1.27 (0.83-1.09) H 10/17/19 19:31 Problem List - Problems (1) Abdominal pain Problems reviewed: Yes Code(s): R10.9 - UNSPECIFIED ABDOMINAL PAIN (2) Abnormal blood electrolyte level Problems reviewed: Yes Code(s): E87.8 - OTH DISORDERS OF ELECTROLYTE AND FLUID BALANCE, NEC (3) Alcohol dependence Problems reviewed: Yes Code(s): F10.20 - ALCOHOL DEPENDENCE, UNCOMPLICATED (4) Alcoholic cirrhosis of liver with ascites Code(s): K70.31 - ALCOHOLIC CIRRHOSIS OF LIVER WITH ASCITES (5) Ascites Code(s): R18.8 - OTHER ASCITES Qualifiers: Ascites type: due to alcoholic cirrhosis Qualified Code(s): K70.31 - Alcoholic cirrhosis of liver with ascites (6) Cirrhosis of liver with ascites Code(s): K74.60 - UNSPECIFIED CIRRHOSIS OF LIVER; R18.8 - OTHER ASCITES (7) Elevated troponin Code(s): R79.89 - OTHER SPECIFIED ABNORMAL FINDINGS OF BLOOD CHEMISTRY (8) HTN (hypertension) Code(s): I10 - ESSENTIAL (PRIMARY) HYPERTENSION (9) Hyperglycemia, unspecified Code(s): R73.9 - HYPERGLYCEMIA, UNSPECIFIED Assessment/Plan Current Active Problems Abdominal pain (Acute) Abnormal blood electrolyte level (Acute) Alcohol dependence (Acute) Alcoholic cirrhosis of liver with ascites (Acute) Ascites (Acute) Cirrhosis of liver with ascites (Acute) Elevated troponin (Acute) HTN (hypertension) (Acute) Hepatic encephalopathy (Acute) Hyperglycemia (Acute) Hyperglycemia, unspecified (Acute) PUD (peptic ulcer disease) (Acute) Serum ammonia increased (Acute) Thrombocytopenia (Acute) Uncontrolled diabetes mellitus (Acute) Abnormal Lab Results 10/22/19 10/22/19 08:17 08:17 RBC 3.50 L MCV 101.0 H RDW 22.2 H Sodium 134 L Chloride 97 L Anion Gap 6 L BUN 5.9 L Random Glucose 275 H Total Bilirubin 2.7 H AST 88 H Alkaline Phosphatase 119 H Albumin 2.5 L Laboratory Tests 10/20/19 10/21/19 10/22/19 06:40 07:00 06:37 Sodium Potassium Chloride Carbon Dioxide Anion Gap BUN Creatinine Est GFR (CKD-EPI)AfAm POC Glucometer 286 AST ALT Ammonia 67.60 H 43.40 H 10/22/19 10/22/19 10/22/19 08:17 12:06 16:38 Sodium 134 L Potassium 4.2 Chloride 97 L Carbon Dioxide 30 Anion Gap 6 L BUN 5.9 L Creatinine 0.9 Est GFR (CKD-EPI)AfAm 106.46 POC Glucometer 354 292 AST 88 H ALT 39 Ammonia plan: will need terminal superintendent plan of care snf vs home care with family support bgm qid novolog insulin doses levemir 2mg daily
[2019-10-23] MEDS: MAG HYDROX/AL HYDROX/SIMETH 30 ML UNIT-DOSE CUP PO PRN ×2 (04:56→17:00)
[2019-10-23] MEDS: chlordiazePOXIDE HCL 25 MG CAPSULE PO SCH ×2 (05:00→22:10)
[2019-10-23] MEDS: LACTULOSE 20 GM/30 ML UDC (FOR ORAL USE ONLY) PO SCH ×4 (05:01→22:10)
[2019-10-23] MEDS ORDERED: PT OWN MED DRAWER 7, Y5N ONE ×2 (06:06→09:44)
[2019-10-23] MEDS: INSULIN SLIDING SCALE (NOVOLOG) 1 VIAL SQ SCH ×4 (06:33→22:18)
[2019-10-23] MEDS: GLIMEPIRIDE 2 MG TABLET (FP) PO SCH (06:33)
[2019-10-23] MEDS: THIAMINE HCL 100 MG TABLET (FP) PO SCH (10:17)
[2019-10-23] MEDS: FOLIC ACID 1 MG TABLET (FP) PO SCH (10:17)
[2019-10-23] MEDS: SPIRONOLACTONE 25 MG TABLET (FP) PO SCH (10:17)
[2019-10-23] MEDS: FUROSEMIDE 20 MG TABLET (FP) PO SCH (10:17)
[2019-10-23] MEDS: RIFAXIMIN 550 MG TABLET (UD) PO SCH ×2 (10:17→22:10)
[2019-10-23] MEDS: MULTIVITAMINS (DAILY MVI) TABLET (FP) PO SCH (10:17)
[2019-10-23] MEDS: AMMONIUM LACTATE 12% LOTION 225 GM BOTTLE TP SCH ×2 (10:18→22:11)
[2019-10-23] MEDS: TRIAMCINOLONE ACET 0.1% 60 ML LOTION TP SCH ×2 (10:18→22:11)
--- NOTE | 2019-10-23 12:28 | PN ---
Progress Note, Physician - Current Medication List Current Medications: Active Medications Al Hydroxide/Mg Hydroxide (Mylanta Oral Suspension -) 30 ml PO Q6H PRN PRN Reason: DYSPEPSIA Last Admin: 10/23/19 04:56 Dose: 30 ml Chlordiazepoxide HCl (Librium -) 25 mg PO TID [facility] Last Admin: 10/23/19 05:00 Dose: 25 mg Folic Acid (Folic Acid -) 1 mg PO DAILY [facility] Last Admin: 10/23/19 10:17 Dose: 1 mg Furosemide (Lasix -) 20 mg PO DAILY [facility] Last Admin: 10/23/19 10:17 Dose: 20 mg Glimepiride (Amaryl -) 2 mg PO DAILY@0700 [facility] Last Admin: 10/23/19 06:33 Dose: 2 mg Guaifenesin (Robitussin -) 10 ml PO Q6H PRN PRN Reason: COUGH Last Admin: 10/20/19 20:48 Dose: 10 ml Insulin Aspart (Novolog Vial Sliding Scale -) 1 vial SQ ACHS [facility]; Protocol Last Admin: 10/23/19 06:33 Dose: Not Given Lactic Acid (Lac-Hydrin 12) 1 applic TP BID [facility] Last Admin: 10/23/19 10:18 Dose: 1 applic Lactulose (Cephulac (Oral Use)) 20 gm PO TID [facility] Last Admin: 10/23/19 05:01 Dose: 20 gm Multivitamins/Minerals/Vitamin C (Tab-A-Vit -) 1 tab PO DAILY [facility] Last Admin: 10/23/19 10:17 Dose: 1 tab Rifaximin (Xifaxan -) 550 mg PO BID [facility] Last Admin: 10/23/19 10:17 Dose: 550 mg Spironolactone (Aldactone -) 50 mg PO DAILY [facility] Last Admin: 10/23/19 10:17 Dose: 50 mg Thiamine HCl (Vitamin B1 -) 100 mg PO DAILY [facility] Last Admin: 10/23/19 10:17 Dose: 100 mg Triamcinolone Acetonide (Aristocort 0.1% Lotion -) 1 applic TP BID [facility] Last Admin: 10/23/19 10:18 Dose: 1 applic - Objective Vital Signs: Vital Signs Temperature 98.5 F 10/23/19 05:01 Pulse Rate 93 H 10/23/19 05:01 Respiratory Rate 18 10/23/19 05:01 Blood Pressure 139/90 10/23/19 05:01 O2 Sat by Pulse Oximetry (%) 97 10/22/19 21:00 Cardiovascular: Yes: S1, S2 Respiratory: Yes: Regular, CTA Bilaterally Gastrointestinal: Yes: Normal Bowel Sounds, Soft, Ascites Labs: CBC, BMP 10/22/19 08:17 10/22/19 08:17 INR, PTT INR 1.27 (0.83-1.09) H 10/17/19 19:31 Assessment/Plan - Problems (1) Abdominal pain Assessment/Plan: -Resolved -2/2 Ascites -s/p paracentesis Code(s): R10.9 - UNSPECIFIED ABDOMINAL PAIN (2) Cirrhosis of liver with ascites Assessment/Plan: -GI on board -Ammonia 63.70 -Lactulose BID-TID -Abdominal US moderate to marked ascites -s/p paracentesis with 5L removed -daily weights -fluid restrictions -pending result cytology of ascites fluid Code(s): K74.60 - UNSPECIFIED CIRRHOSIS OF LIVER; R18.8 - OTHER ASCITES (3) Hyperglycemia Assessment/Plan: -ISS -HgA1c -Endocrinology consult Code(s): R73.9 - HYPERGLYCEMIA, UNSPECIFIED (4) Alcohol dependence Assessment/Plan: -Dr Espinoza -Ativan BID--Librium 25 qid to tid -MVI, Folic Acid, Thiamine -neuro checks -seizure precaution -fall risk precautions -Psych consult Code(s): F10.20 - ALCOHOL DEPENDENCE, UNCOMPLICATED (5) Elevated troponin Assessment/Plan: -Cardiology consult -troponin 0.09, 0.10 Code(s): R79.89 - OTHER SPECIFIED ABNORMAL FINDINGS OF BLOOD CHEMISTRY (6) Serum ammonia increased Assessment/Plan: -Ammonia 63.70 -Lactulose BID Code(s): E72.20 - DISORDER OF UREA CYCLE METABOLISM, UNSPECIFIED (7) Thrombocytopenia Assessment/Plan: -PLT improved -Hematology consult noted Code(s): D69.6 - THROMBOCYTOPENIA, UNSPECIFIED
[2019-10-23] MEDS ORDERED: INSULIN (NOVOLOG) ASPART 100 UNITS/ML 10ML VIAL ONE (20:48)
[2019-10-24] MEDS: LACTULOSE 20 GM/30 ML UDC (FOR ORAL USE ONLY) PO SCH ×3 (05:37→21:10)
[2019-10-24] MEDS: MAG HYDROX/AL HYDROX/SIMETH 30 ML UNIT-DOSE CUP PO PRN ×4 (05:37→21:10)
[2019-10-24] MEDS: INSULIN SLIDING SCALE (NOVOLOG) 1 VIAL SQ SCH ×4 (06:28→21:12)
[2019-10-24] MEDS: GLIMEPIRIDE 2 MG TABLET (FP) PO SCH (06:33)
--- NOTE | 2019-10-24 08:13 | PN.GI ---
GI Progress Note Subjective: Patient denies nausea, vomiting, abdominal pain, diarrhea, constipation, melena , or rectal bleeding. He is more alert and awake, less confused. - Objective Vital Signs: Vital Signs Temperature 97.9 F 10/24/19 06:08 Pulse Rate 99 H 10/24/19 06:08 Respiratory Rate 18 10/24/19 06:08 Blood Pressure 138/70 10/24/19 06:08 O2 Sat by Pulse Oximetry (%) 97 10/23/19 21:00 Constitutional: No Distress, Calm Eyes: Yes: Conjunctiva Clear HENT: Yes: Atraumatic Cardiovascular: Yes: Regular Rate and Rhythm Respiratory: Yes: Regular, CTA Bilaterally Gastrointestinal Inspection: Yes: Ascites. No: WNL, Distention, Hernia, Scars, Other ...Auscultate: Yes: Normoactive Bowel Sounds. No: Hyperactive Bowel Sounds, Hypoactive Bowel Sounds, No Bowel Sounds, Other ...Palpate: Yes: Soft. No: Firm/Rigid, Guarding, Hepatomegaly, Mass, Pulsatile Mass, Splenomegaly, Tenderness, Tenderness, Epigastium, Tenderness, Rebound, Other ...Percussion: Yes: Tympanitic. No: Dullness, Fluid Wave, Other Neurological: Yes: Alert Psychiatric: Yes: Alert Labs: CBC, BMP 10/22/19 08:17 10/22/19 08:17 INR, PTT INR 1.27 (0.83-1.09) H 10/17/19 19:31 Problem List - Problems (1) Alcoholic cirrhosis of liver with ascites Assessment/Plan: R> continue with Aldactone 50mg daily Lasix 20 mg daily Code(s): K70.31 - ALCOHOLIC CIRRHOSIS OF LIVER WITH ASCITES (2) Hepatic encephalopathy Assessment/Plan: >resolved Code(s): K72.90 - HEPATIC FAILURE, UNSPECIFIED WITHOUT COMA
[2019-10-24] MEDS ORDERED: PT OWN MED DRAWER 7, Y5N ONE (09:52)
[2019-10-24] MEDS: THIAMINE HCL 100 MG TABLET (FP) PO SCH ×2 (09:55→10:23)
[2019-10-24] MEDS: SPIRONOLACTONE 25 MG TABLET (FP) PO SCH ×2 (09:55→10:23)
[2019-10-24] MEDS: RIFAXIMIN 550 MG TABLET (UD) PO SCH ×3 (09:56→21:10)
[2019-10-24] MEDS: TRIAMCINOLONE ACET 0.1% 60 ML LOTION TP SCH ×2 (09:56→21:11)
[2019-10-24] MEDS: MULTIVITAMINS (DAILY MVI) TABLET (FP) PO SCH (09:56)
[2019-10-24] MEDS: FOLIC ACID 1 MG TABLET (FP) PO SCH ×2 (09:56→10:23)
[2019-10-24] MEDS: chlordiazePOXIDE HCL 25 MG CAPSULE PO SCH ×2 (09:56→21:10)
[2019-10-24] MEDS: FUROSEMIDE 20 MG TABLET (FP) PO SCH ×2 (09:56→10:23)
[2019-10-24] MEDS: AMMONIUM LACTATE 12% LOTION 225 GM BOTTLE TP SCH ×2 (10:01→21:11)
--- NOTE | 2019-10-24 10:56 | DS ---
Physical Examination Vital Signs: Vital Signs Temperature 98 F 10/24/19 10:00 Pulse Rate 99 H 10/24/19 10:00 Respiratory Rate 18 10/24/19 10:00 Blood Pressure 138/100 10/24/19 10:00 O2 Sat by Pulse Oximetry (%) 97 10/24/19 09:00 Findings/Remarks: Laboratory Results - last 24 hr 10/23/19 10/23/19 10/24/19 17:22 22:16 06:27 POC Glucometer 251 215 176 Active Medications Generic Name Dose Route Start Last Admin Trade Name Freq PRN Reason Stop Dose Admin Al Hydroxide/Mg Hydroxide 30 ml 10/21/19 18:44 10/24/19 05:37 Mylanta Oral Suspension - PO 30 ml Q6H PRN Administration DYSPEPSIA Chlordiazepoxide HCl 25 mg 10/23/19 22:00 10/24/19 09:56 Librium - PO 25 mg BID [facility] Administration Folic Acid 1 mg 10/19/19 10:00 10/24/19 10:23 Folic Acid - PO Not Given DAILY [facility] Furosemide 20 mg 10/20/19 11:00 10/24/19 10:23 Lasix - PO Not Given DAILY [facility] Glimepiride 2 mg 10/23/19 07:00 10/24/19 06:33 Amaryl - PO 2 mg DAILY@0700 [facility] Administration Guaifenesin 10 ml 10/20/19 15:15 10/20/19 20:48 Robitussin - PO 10 ml Q6H PRN Administration COUGH Insulin Aspart 1 vial 10/20/19 07:00 10/24/19 12:09 Novolog Vial Sliding Scale - SQ Not Given ACHS [facility] Protocol Lactic Acid 1 applic 10/20/19 10:45 10/24/19 10:01 Lac-Hydrin 12 TP Not Given BID [facility] Lactulose 20 gm 10/20/19 14:00 10/24/19 05:37 Cephulac (Oral Use) PO 20 gm TID [facility] Administration Multivitamins/Minerals/Vitamin C 1 tab 10/19/19 10:00 10/24/19 09:56 Tab-A-Vit - PO 1 tab DAILY [facility] Administration Rifaximin 550 mg 10/18/19 22:00 10/24/19 10:23 Xifaxan - PO Not Given BID [facility] Spironolactone 50 mg 10/19/19 10:00 10/24/19 10:23 Aldactone - PO Not Given DAILY [facility] Thiamine HCl 100 mg 10/18/19 17:45 10/24/19 10:23 Vitamin B1 - PO Not Given DAILY [facility] Triamcinolone Acetonide 1 applic 10/20/19 10:45 10/24/19 09:56 Aristocort 0.1% Lotion - TP 1 applic BID [facility] Administration Microbiology 10/18/19 15:00 Ascites Gram Stain - Final 10/18/19 15:00 Ascites Body Fluid Culture - Final NO GROWTH OF AEROBIC ORGANISMS AFTER 48 HOURS INCUBATION 10/18/19 15:00 Ascites Anaerobic Culture - Final NO ANAEROBES WERE ISOLATED 10/18/19 15:00 Ascites AFB Smear Concentration - Final 10/18/19 15:00 Ascites Mycobacterial Culture - Preliminary 10/17/19 20:30 Urine - Urine Clean Catch Urine Culture - Final NO GROWTH OBTAINED 10/18/19 15:00 Ascites PAMELLA Preparation - Preliminary 10/18/19 15:00 Ascites Fungal Culture - Preliminary Constitutional: Yes: No Distress, Calm HENT: Yes: Atraumatic Cardiovascular: Yes: Regular Rate and Rhythm Respiratory: Yes: Regular, CTA Bilaterally Gastrointestinal: Yes: Normal Bowel Sounds, Soft, Ascites (mild) Musculoskeletal: Yes: WNL Extremities: Yes: WNL Edema: No Neurological: Yes: Alert, Oriented Psychiatric: Yes: Alert, Oriented Labs: CBC, BMP 10/22/19 08:17 10/22/19 08:17 Discharge Summary Problems reviewed: Yes Reason For Visit: ASCITES, HYPERGLYCEMIA, ABNORMAL BLOOD ELECTROLYTE Current Active Problems Abdominal pain (Acute) Abnormal blood electrolyte level (Acute) Alcohol dependence (Acute) Alcoholic cirrhosis of liver with ascites (Acute) Ascites (Acute) Cirrhosis of liver with ascites (Acute) Elevated troponin (Acute) HTN (hypertension) (Acute) Hepatic encephalopathy (Acute) Hyperglycemia (Acute) Hyperglycemia, unspecified (Acute) PUD (peptic ulcer disease) (Acute) Serum ammonia increased (Acute) Thrombocytopenia (Acute) Uncontrolled diabetes mellitus (Acute) Hospital Course: This is a 59 y/o man wiith a PMHx of non-domiciled, non-medication compliant, poor historian, Cirrhosis, Alcohol Abuse, HTN, DM, PUD. Who presents to the ED with 3 weeks of abdominal pain, ascites that has been worsening over the past 2 days. Patient is [place] speaking, and hearing impaired unable to use cyracom line. Per ED records: Patient reports pain is usually RUQ and epigastric and nonradiating but he currently does not have pain. Patient also reports pain on urination and a chronic cough. The sister at the bedside states he was visiting 3 weeks ago and then left to go to the streets and she hasn't been able to find him until 2 days ago. Prior to "the street living" patient was reportedly admitted to [facility], where he had a paracentesis but the family is unclear what else was performed and what diagnoses were made. Patient denies n/v. Patient denies hematemesis or BPR. Patient denies fever, falls, syncope. GI on board and IR consulted. Patient had Paracentesis with 5L removed after Abdominal US showed mod to marked ascites. Daily weights have shown no drastic inscrease in weight. patient has history of alcohol abuse and is non-compliant with medication regimen. Previously before discharge he was undomiciled. Patient would benefit from discharge to SNF for medical management. Condition: Stable - Instructions Diet, Activity, Other Instructions: Follow up with PMD in 1 week of discharge Follow up with GI Dr Monzon for Cirrhosis Follow up with Endocrinology Dr Maguire for diabetes management Follow up with Dr Espinoza for Alcohol Dependence daily weights monitor CMP weekly to monitor BUN, monitor CBC weekly to monitor PLT continue with medication as prescribed return to ER if develop severe pain, respiratory distress, chest pain, altered mental status, if ascites is symptomatic with SOB or abdominal pain Referrals: Jeff Sun [Primary Care Provider] - Efren Monzon MD [Staff Physician] - Kalyan Wesley MD [Staff Physician] - Valentina Espinoza DO [Staff Physician] - Disposition: [facility]
--- NOTE | 2019-10-24 16:25 | PATH ---
Cytology Non-Gynecological Report Patient Name: DEEJAY CAMERON JR Med. Rec. #: [id number] /Age/Gender: 1960 (Age: 59) / M Account: [id number] Location: [facility] MED/SURG Taken: 10/18/2019 Received: 10/19/2019 Reported: 10/24/2019 Physicians: PHYSICIAN EMERGENCY DEPT Specimen(s) Received A: ABDOMINAL FLUID B: ABDOMINAL FLUID Clinical History Ascites Final Diagnosis A-B. ABDOMINAL FLUID, PARACENTESIS: SATISFACTORY FOR EVALUATION. NO MALIGNANT CELLS IDENTIFIED. MESOTHELIAL CELLS, FEW LYMPHOCYTES, AND RARE MACROPHAGES PRESENT. Comment: Recommend correlation with clinical findings and follow up as clinically indicated. Electronically Signed Ivanna Arnold M.D. Gross Description A. Approximately 50 cc of yellow fluid received fixed in 50% alcohol. One cytofunnel prepared and Pap stained. One cellblock prepared. B. Approximately 5000 cc of yellow fluid received fresh. One cytofunnel prepared and Pap stained. One cellblock prepared.
[2019-10-25] MEDS: GLIMEPIRIDE 2 MG TABLET (FP) PO SCH (06:02)
[2019-10-25] MEDS: INSULIN SLIDING SCALE (NOVOLOG) 1 VIAL SQ SCH ×4 (06:02→21:10)
[2019-10-25] MEDS: LACTULOSE 20 GM/30 ML UDC (FOR ORAL USE ONLY) PO SCH ×3 (06:02→22:33)
[2019-10-25] MEDS: MAG HYDROX/AL HYDROX/SIMETH 30 ML UNIT-DOSE CUP PO PRN ×3 (07:46→19:06)
--- NOTE | 2019-10-25 10:32 | PN ---
Progress Note, Physician Chief Complaint: Liver cirrhosis Ascitis Abdominal pain History of Present Illness: NAD, walking in the hallway, confused, agitated at times, refusing meds Awaiting d/c to SNF - Current Medication List Current Medications: Active Medications Al Hydroxide/Mg Hydroxide (Mylanta Oral Suspension -) 30 ml PO Q6H PRN PRN Reason: DYSPEPSIA Last Admin: 10/25/19 07:46 Dose: 30 ml Chlordiazepoxide HCl (Librium -) 25 mg PO BID [facility] Last Admin: 10/24/19 21:10 Dose: 25 mg Folic Acid (Folic Acid -) 1 mg PO DAILY [facility] Last Admin: 10/24/19 10:23 Dose: Not Given Furosemide (Lasix -) 20 mg PO DAILY [facility] Last Admin: 10/24/19 10:23 Dose: Not Given Glimepiride (Amaryl -) 2 mg PO DAILY@0700 [facility] Last Admin: 10/25/19 06:02 Dose: Not Given Guaifenesin (Robitussin -) 10 ml PO Q6H PRN PRN Reason: COUGH Last Admin: 10/20/19 20:48 Dose: 10 ml Insulin Aspart (Novolog Vial Sliding Scale -) 1 vial SQ ACHS [facility]; Protocol Last Admin: 10/25/19 06:02 Dose: Not Given Lactic Acid (Lac-Hydrin 12) 1 applic TP BID [facility] Last Admin: 10/24/19 21:11 Dose: 1 applic Lactulose (Cephulac (Oral Use)) 20 gm PO TID [facility] Last Admin: 10/25/19 06:02 Dose: Not Given Multivitamins/Minerals/Vitamin C (Tab-A-Vit -) 1 tab PO DAILY [facility] Last Admin: 10/24/19 09:56 Dose: 1 tab Rifaximin (Xifaxan -) 550 mg PO BID [facility] Last Admin: 10/24/19 21:10 Dose: 550 mg Spironolactone (Aldactone -) 50 mg PO DAILY [facility] Last Admin: 10/24/19 10:23 Dose: Not Given Thiamine HCl (Vitamin B1 -) 100 mg PO DAILY [facility] Last Admin: 10/24/19 10:23 Dose: Not Given Triamcinolone Acetonide (Aristocort 0.1% Lotion -) 1 applic TP BID [facility] Last Admin: 10/24/19 21:11 Dose: 1 applic - Objective Vital Signs: Vital Signs Temperature 98.4 F 10/25/19 06:10 Pulse Rate 90 10/25/19 06:10 Respiratory Rate 20 10/25/19 08:12 Blood Pressure 156/78 10/25/19 06:10 O2 Sat by Pulse Oximetry (%) 97 10/25/19 08:12 Constitutional: Yes: Well Nourished, No Distress, Calm Cardiovascular: Yes: Regular Rate and Rhythm Respiratory: Yes: Regular Gastrointestinal: Yes: Normal Bowel Sounds, Soft, Ascites Musculoskeletal: Yes: Muscle Weakness Extremities: Yes: WNL Edema: No Peripheral Pulses WNL: Yes Integumentary: Yes: Jaundice Neurological: Yes: Alert, Pre-Existing Deficit Psychiatric: Yes: Alert Labs: CBC, BMP 10/22/19 08:17 10/22/19 08:17 INR, PTT INR 1.27 (0.83-1.09) H 10/17/19 19:31 Assessment/Plan (1) Abdominal pain Assessment/Plan: -Resolved -2/2 Ascites -s/p paracentesis Code(s): R10.9 - UNSPECIFIED ABDOMINAL PAIN (2) Cirrhosis of liver with ascites Assessment/Plan: -GI on board -Lactulose BID-TID- pt refused last dose -Encouraged compliance -Abdominal US moderate to marked ascites -s/p paracentesis with 5L removed -daily weights -fluid restrictions -pending result cytology of ascites fluid Code(s): K74.60 - UNSPECIFIED CIRRHOSIS OF LIVER; R18.8 - OTHER ASCITES (3) Hyperglycemia Assessment/Plan: -ISS -HgA1c -Endocrinology consult Code(s): R73.9 - HYPERGLYCEMIA, UNSPECIFIED (4) Alcohol dependence Assessment/Plan: -Dr Espinoza -Librium 25 qid to tid -MVI, Folic Acid, Thiamine -neuro checks -seizure precaution -fall risk precautions -Psych consult Code(s): F10.20 - ALCOHOL DEPENDENCE, UNCOMPLICATED (5) Elevated troponin Assessment/Plan: -Cardiology consult Code(s): R79.89 - OTHER SPECIFIED ABNORMAL FINDINGS OF BLOOD CHEMISTRY (6) Serum ammonia increased Assessment/Plan: -Lactulose BID Code(s): E72.20 - DISORDER OF UREA CYCLE METABOLISM, UNSPECIFIED (7) Thrombocytopenia Assessment/Plan: -PLT improved -received Plts 2 units -Hematology consult noted Code(s): D69.6 - THROMBOCYTOPENIA, UNSPECIFIED
[2019-10-25] MEDS: FOLIC ACID 1 MG TABLET (FP) PO SCH ×2 (10:49→14:06)
[2019-10-25] MEDS: AMMONIUM LACTATE 12% LOTION 225 GM BOTTLE TP SCH ×2 (10:49→21:16)
[2019-10-25] MEDS: SPIRONOLACTONE 25 MG TABLET (FP) PO SCH ×2 (10:49→14:05)
[2019-10-25] MEDS: TRIAMCINOLONE ACET 0.1% 60 ML LOTION TP SCH ×2 (10:49→21:16)
[2019-10-25] MEDS: MULTIVITAMINS (DAILY MVI) TABLET (FP) PO SCH ×2 (10:50→14:06)
[2019-10-25] MEDS: THIAMINE HCL 100 MG TABLET (FP) PO SCH ×2 (10:50→14:06)
[2019-10-25] MEDS: chlordiazePOXIDE HCL 25 MG CAPSULE PO SCH ×3 (10:50→21:09)
[2019-10-25] MEDS: FUROSEMIDE 20 MG TABLET (FP) PO SCH (10:50)
[2019-10-25] MEDS: RIFAXIMIN 550 MG TABLET (UD) PO SCH ×2 (10:51→14:05)
[2019-10-25] MEDS ORDERED: PT OWN MED DRAWER 7, Y5N ONE (14:04)
[2019-10-25] MEDS: MELATONIN 1 MG TABLET PO SCH (21:09)
[2019-10-26] MEDS: MAG HYDROX/AL HYDROX/SIMETH 30 ML UNIT-DOSE CUP PO PRN ×3 (00:42→14:49)
[2019-10-26] MEDS: guaiFENesin 200 MG/10 ML 10 ML UNIT-DOSE CUPS PO PRN (02:12)
[2019-10-26] MEDS ORDERED: PT OWN MED DRAWER 7, Y5N ONE ×2 (05:24→15:46)
[2019-10-26] MEDS: LACTULOSE 20 GM/30 ML UDC (FOR ORAL USE ONLY) PO SCH ×3 (05:32→22:46)
[2019-10-26] MEDS: INSULIN SLIDING SCALE (NOVOLOG) 1 VIAL SQ SCH ×4 (06:07→17:29)
[2019-10-26] MEDS: GLIMEPIRIDE 2 MG TABLET (FP) PO SCH (06:07)
[2019-10-26] MEDS: MULTIVITAMINS (DAILY MVI) TABLET (FP) PO SCH (09:32)
[2019-10-26] MEDS: FUROSEMIDE 20 MG TABLET (FP) PO SCH (09:32)
[2019-10-26] MEDS: SPIRONOLACTONE 25 MG TABLET (FP) PO SCH (09:32)
[2019-10-26] MEDS: THIAMINE HCL 100 MG TABLET (FP) PO SCH (09:32)
[2019-10-26] MEDS: FOLIC ACID 1 MG TABLET (FP) PO SCH (09:32)
[2019-10-26] MEDS: AMMONIUM LACTATE 12% LOTION 225 GM BOTTLE TP SCH ×2 (09:32→23:58)
[2019-10-26] MEDS: chlordiazePOXIDE HCL 25 MG CAPSULE PO SCH ×2 (09:32→23:59)
[2019-10-26] MEDS: TRIAMCINOLONE ACET 0.1% 60 ML LOTION TP SCH ×2 (09:32→23:58)
--- NOTE | 2019-10-26 10:54 | PN ---
Progress Note, Physician Chief Complaint: Liver cirrhosis Ascitis Abdominal pain History of Present Illness: NAD, walking in the hallway, confused, agitated at times, refusing meds Awaiting d/c to SNF - Current Medication List Current Medications: Active Medications Al Hydroxide/Mg Hydroxide (Mylanta Oral Suspension -) 30 ml PO Q6H PRN PRN Reason: DYSPEPSIA Last Admin: 10/26/19 09:33 Dose: 30 ml Chlordiazepoxide HCl (Librium -) 25 mg PO BID [facility] Last Admin: 10/26/19 09:32 Dose: Not Given Folic Acid (Folic Acid -) 1 mg PO DAILY [facility] Last Admin: 10/26/19 09:32 Dose: Not Given Furosemide (Lasix -) 20 mg PO DAILY [facility] Last Admin: 10/26/19 09:32 Dose: Not Given Glimepiride (Amaryl -) 2 mg PO DAILY@0700 [facility] Last Admin: 10/26/19 06:07 Dose: 2 mg Guaifenesin (Robitussin -) 10 ml PO Q6H PRN PRN Reason: COUGH Last Admin: 10/26/19 02:12 Dose: 10 ml Insulin Aspart (Novolog Vial Sliding Scale -) 1 vial SQ ACHS [facility]; Protocol Last Admin: 10/26/19 06:07 Dose: Not Given Lactic Acid (Lac-Hydrin 12) 1 applic TP BID [facility] Last Admin: 10/26/19 09:32 Dose: Not Given Lactulose (Cephulac (Oral Use)) 20 gm PO TID [facility] Last Admin: 10/26/19 05:32 Dose: 20 gm Melatonin (Melatonin) 1 mg PO HS [facility] Last Admin: 10/25/19 21:09 Dose: 1 mg Multivitamins/Minerals/Vitamin C (Tab-A-Vit -) 1 tab PO DAILY [facility] Last Admin: 10/26/19 09:32 Dose: Not Given Spironolactone (Aldactone -) 50 mg PO DAILY [facility] Last Admin: 10/26/19 09:32 Dose: Not Given Thiamine HCl (Vitamin B1 -) 100 mg PO DAILY [facility] Last Admin: 10/26/19 09:32 Dose: Not Given Triamcinolone Acetonide (Aristocort 0.1% Lotion -) 1 applic TP BID [facility] Last Admin: 10/26/19 09:32 Dose: Not Given - Objective Vital Signs: Vital Signs Temperature 98.7 F 10/26/19 10:00 Pulse Rate 90 10/26/19 10:00 Respiratory Rate 18 10/26/19 10:00 Blood Pressure 155/85 10/26/19 10:00 O2 Sat by Pulse Oximetry (%) 97 10/25/19 21:00 Constitutional: Yes: Well Nourished, No Distress, Calm Cardiovascular: Yes: Regular Rate and Rhythm Respiratory: Yes: Regular Gastrointestinal: Yes: Normal Bowel Sounds, Soft, Ascites Genitourinary: Yes: WNL Musculoskeletal: Yes: WNL Extremities: Yes: WNL Edema: No Peripheral Pulses WNL: Yes Neurological: Yes: Alert, Confusion Psychiatric: Yes: Alert, Agitated Labs: CBC, BMP 10/22/19 08:17 10/22/19 08:17 INR, PTT INR 1.27 (0.83-1.09) H 10/17/19 19:31 Assessment/Plan (1) Abdominal pain Assessment/Plan: -Resolved -2/2 Ascites -s/p paracentesis Code(s): R10.9 - UNSPECIFIED ABDOMINAL PAIN (2) Cirrhosis of liver with ascites Assessment/Plan: -GI on board -Lactulose BID-TID- pt refused last dose -Encouraged compliance -Abdominal US moderate to marked ascites -s/p paracentesis with 5L removed -daily weights -fluid restrictions -pending result cytology of ascites fluid Code(s): K74.60 - UNSPECIFIED CIRRHOSIS OF LIVER; R18.8 - OTHER ASCITES (3) Hyperglycemia Assessment/Plan: -ISS -HgA1c -Endocrinology consult Code(s): R73.9 - HYPERGLYCEMIA, UNSPECIFIED (4) Alcohol dependence Assessment/Plan: -Dr Espinoza -Librium 25 qid to tid -MVI, Folic Acid, Thiamine -neuro checks -seizure precaution -fall risk precautions -Psych consult Code(s): F10.20 - ALCOHOL DEPENDENCE, UNCOMPLICATED (5) Elevated troponin Assessment/Plan: -Cardiology consult Code(s): R79.89 - OTHER SPECIFIED ABNORMAL FINDINGS OF BLOOD CHEMISTRY (6) Serum ammonia increased Assessment/Plan: -Lactulose BID Code(s): E72.20 - DISORDER OF UREA CYCLE METABOLISM, UNSPECIFIED (7) Thrombocytopenia Assessment/Plan: -PLT improved -received Plts 2 units -Hematology consult noted Code(s): D69.6 - THROMBOCYTOPENIA, UNSPECIFIED Spoke to sister, who is in agreement for pt going to [facility]
[2019-10-26] MEDS ORDERED: LORazepam 2 MG/ML SDV VIAL IM ONE (11:51)
[2019-10-26] MEDS ORDERED: LORazepam 2 MG/ML SDV VIAL ONE (11:53)
--- NOTE | 2019-10-26 12:20 | PN ---
Progress Note (short form) - Note Progress Note: Patient seen for Psych reeval. case discussed with staff. Patient has been displaying aggressive behaviour toward sraff. Physically threatenibf and intinidating to staff. REC: Haldol 5mg im q4 hrs prn.
[2019-10-26] MEDS: HALOPERIDOL LACTATE 5 MG/ML IM PRN (14:22)
[2019-10-26] MEDS: MELATONIN 1 MG TABLET PO SCH (23:59)
[2019-10-27] MEDS: MAG HYDROX/AL HYDROX/SIMETH 30 ML UNIT-DOSE CUP PO PRN ×2 (03:57→10:24)
[2019-10-27] MEDS: GLIMEPIRIDE 2 MG TABLET (FP) PO SCH (06:20)
[2019-10-27] MEDS: INSULIN SLIDING SCALE (NOVOLOG) 1 VIAL SQ SCH ×2 (06:20→12:04)
[2019-10-27] MEDS: LACTULOSE 20 GM/30 ML UDC (FOR ORAL USE ONLY) PO SCH ×2 (06:20→14:54)
[2019-10-27] MEDS: HALOPERIDOL LACTATE 5 MG/ML IM PRN (10:05)
[2019-10-27] MEDS: TRIAMCINOLONE ACET 0.1% 60 ML LOTION TP SCH (12:03)
[2019-10-27] MEDS: FOLIC ACID 1 MG TABLET (FP) PO SCH (12:03)
[2019-10-27] MEDS: SPIRONOLACTONE 25 MG TABLET (FP) PO SCH (12:03)
[2019-10-27] MEDS: AMMONIUM LACTATE 12% LOTION 225 GM BOTTLE TP SCH (12:03)
[2019-10-27] MEDS: chlordiazePOXIDE HCL 25 MG CAPSULE PO SCH (12:03)
[2019-10-27] MEDS: MULTIVITAMINS (DAILY MVI) TABLET (FP) PO SCH (12:03)
[2019-10-27] MEDS: FUROSEMIDE 20 MG TABLET (FP) PO SCH (12:03)
[2019-10-27] MEDS: THIAMINE HCL 100 MG TABLET (FP) PO SCH (12:04)
[2019-10-27 13:56] VITALS: BP 101/68; PULSE 94; TEMP 98
--- NOTE | 2019-10-27 14:54 | PN ---
Progress Note, Physician Chief Complaint: patient seen and examined family at bed side refusing medications seen by psych on haldol prn insurance refusing to cover STR - Current Medication List Current Medications: Active Medications Al Hydroxide/Mg Hydroxide (Mylanta Oral Suspension -) 30 ml PO Q6H PRN PRN Reason: DYSPEPSIA Last Admin: 10/27/19 10:24 Dose: 30 ml Chlordiazepoxide HCl (Librium -) 25 mg PO BID [facility] Last Admin: 10/27/19 12:03 Dose: Not Given Folic Acid (Folic Acid -) 1 mg PO DAILY [facility] Last Admin: 10/27/19 12:03 Dose: Not Given Furosemide (Lasix -) 20 mg PO DAILY [facility] Last Admin: 10/27/19 12:03 Dose: Not Given Glimepiride (Amaryl -) 2 mg PO DAILY@0700 [facility] Last Admin: 10/27/19 06:20 Dose: Not Given Guaifenesin (Robitussin -) 10 ml PO Q6H PRN PRN Reason: COUGH Last Admin: 10/26/19 02:12 Dose: 10 ml Haloperidol (Haldol Injection (Fast Acting) -) 5 mg IM Q4H PRN PRN Reason: AGITATION Last Admin: 10/27/19 10:05 Dose: 5 mg Insulin Aspart (Novolog Vial Sliding Scale -) 1 vial SQ [facility]; Protocol Last Admin: 10/27/19 12:04 Dose: Not Given Lactic Acid (Lac-Hydrin 12) 1 applic TP BID [facility] Last Admin: 10/27/19 12:03 Dose: Not Given Lactulose (Cephulac (Oral Use)) 20 gm PO TID [facility] Last Admin: 10/27/19 06:20 Dose: Not Given Melatonin (Melatonin) 1 mg PO HS [facility] Last Admin: 10/26/19 23:59 Dose: Not Given Multivitamins/Minerals/Vitamin C (Tab-A-Vit -) 1 tab PO DAILY [facility] Last Admin: 10/27/19 12:03 Dose: Not Given Spironolactone (Aldactone -) 50 mg PO DAILY [facility] Last Admin: 10/27/19 12:03 Dose: Not Given Thiamine HCl (Vitamin B1 -) 100 mg PO DAILY [facility] Last Admin: 10/27/19 12:04 Dose: Not Given Triamcinolone Acetonide (Aristocort 0.1% Lotion -) 1 applic TP BID [facility] Last Admin: 10/27/19 12:03 Dose: Not Given - Objective Vital Signs: Vital Signs Temperature 98 F 10/27/19 13:54 Pulse Rate 94 H 10/27/19 13:54 Respiratory Rate 20 10/27/19 13:54 Blood Pressure 101/68 10/27/19 13:54 O2 Sat by Pulse Oximetry (%) 99 10/27/19 09:00 Constitutional: Yes: Calm Cardiovascular: Yes: Regular Rate and Rhythm, S1, S2 Respiratory: Yes: CTA Bilaterally Gastrointestinal: Yes: Normal Bowel Sounds, Soft Edema: No Labs: CBC, BMP 10/22/19 08:17 10/22/19 08:17 INR, PTT INR 1.27 (0.83-1.09) H 10/17/19 19:31 Problem List - Problems (1) Alcohol dependence Assessment/Plan: patient on thiamine and folic acid will need outpatient alcohol detox program insurance not covering STR librium bid Code(s): F10.20 - ALCOHOL DEPENDENCE, UNCOMPLICATED (2) Alcoholic cirrhosis of liver with ascites Assessment/Plan: s/p paracentesis on lacutloase and aldactone but refusing medications seen by psych Code(s): K70.31 - ALCOHOLIC CIRRHOSIS OF LIVER WITH ASCITES
== END 2019-10-27 17:46 | DRG 264 ==
LOC: JER 18:42 → JERBED 10-18 01:26 → J7W 10-19 11:56
PROVIDERS: ADMIT Internal Medicine; ATTEND Family Medicine
PROC: 0W9G3ZX Drainage of Peritoneal Cavity, Percutaneous Approach, Diagnostic (ICD-10-PCS; principal; 2019-10-18)
PROC: 30233R1 Transfusion of Nonautologous Platelets into Peripheral Vein, Percutaneous Approach (ICD-10-PCS; 2019-10-18)
DX: K70.31 Alcoholic cirrhosis of liver with ascites (principal); F10.20 Alcohol dependence, uncomplicated; R10.9 Unspecified abdominal pain; I10 Essential (primary) hypertension; K27.9 Peptic ulcer, site unspecified, unspecified as acute or chronic, without hemorrhage or perforation; D69.6 Thrombocytopenia, unspecified; E87.8 Other disorders of electrolyte and fluid balance, not elsewhere classified; E72.20 Disorder of urea cycle metabolism, unspecified; E11.65 Type 2 diabetes mellitus with hyperglycemia; R16.1 Splenomegaly, not elsewhere classified; D61.818 Other pancytopenia
CPT/HCPCS: 36415; 36430; 36511; 71046-TC-FY; 76700-TC; 76942-TC; 80053; 80307; 81003; 82042; 82140; 82150; 82465; 82550; 82553; 82945; 82962; 83036; 83615; 83690; 83735; 83986; 84100; 84157; 84478; 84484; 85025; 85027; 85610; 85730; 86704; 86705; 86706; 86707; 86803; 86850; 86900; 86901; 87070; 87075; 87086; 87102; 87116; 87205; 87206; 87210; 88108; 88305-TC; 89051; 93005; 93010; 97116-GP; 97161-GP; 99285-25; P9034; P9038